=== PATIENT | male | born 1985 | race Caucasian/White ===

== ENCOUNTER 2024-04-14 18:36 | Inpatient (IN) | payer BC, SELFPAY ==
--- NOTE | 2024-04-14 18:42 | ED.PSYCH ---
HPI - Psych General Chief Complaint: Psychiatric Symptoms Stated Complaint: SI Time Seen by Provider: 04/14/24 19:17 Source: patient Mode of arrival: ambulatory Limitations: no limitations History of Present Illness ED Provider: Valentina Deng PA-C HPI Narrative: Patient is a 38 year old assigned male at with a history of bipolar disorder and borderline personality disorders presenting to the emergency department today with auditory hallucinations. Patient states that over the last 3-4 months he has had auditory hallucinations that seem to be worsening. Patient denies any thoughts of harming himself or others. Patient denies any dizziness, lightheadedness, abdominal pain, nausea, vomiting, fever, chills, blurry vision, double vision, loss of vision, chest pain, difficulty breathing, shortness of breath, back pain, night sweats, pain with urination, increased urinary frequency, increased urinary urgency, blood in his urine or stool, syncope or a near syncopal episode, recent trauma or falls, bowel incontinence, bladder incontinence, or any other complaints at this time. Associated psychiatric symptoms: auditory hallucinations Associated symptoms: denies other symptoms Related Data Allergies Allergy/AdvReac Type Severity Reaction Status Date / Time No Known Allergies Allergy Verified 04/14/24 18:47 Review of Systems Constitutional: Constitutional: Reports no additional constitutional complaints, Denies chills, Denies fever(s) and Denies night sweats Eyes: Eyes: Reports no additional eye complaints, Denies blurry vision, Denies change in vision, Denies diplopia, Denies eye discharge, Denies loss of vision and Denies eye pain ENT: Denies dizziness Cardiovascular: Cardiovascular: Reports no additional cardiovascular complaints, Denies chest pain, Denies lightheadedness, Denies Loss of Consciousness and Denies dyspnea Respiratory: Respiratory: Reports no additional respiratory complaints and Denies dyspnea Gastrointestinal: Gastrointestinal: Reports no additional gastrointestinal complaints, Denies abdominal pain, Denies melena, Denies hematochezia, Denies change in bowel habits and Denies change in stool character Genitourinary: Genitourinary: Reports no additional male genitourinary complaints, Denies hematuria, Denies oliguria, Denies difficulty urinating, Denies dysuria, Denies urinary frequency, Denies urinary hesitancy, Denies urinary incontinence and Denies urinary urgency Musculoskeletal: Musculoskeletal: Reports no additional musculoskeletal complaints, Denies numbness and Denies tingling Neurologic: Denies dizziness, Denies loss of vision, Denies numbness and Denies tingling Psychiatric: Psychiatric: Reports no additional psychiatric complaints, Reports auditory hallucinations, Denies homicidal ideation and Denies suicidal ideation Endocrine: Endocrine: Reports no additional endocrine complaints Hematologic/Lymphatic: Hematologic/Lymphatic: Reports no additional hematologic/lymphatic complaints Allergic/Immunologic: Allergic/Immunologic: Reports no additional allergic/immunologic complaints PMFSH Past Medical History Attestation statement: The following information was validated with the patient. Source: old records reviewed and nursing notes reviewed Social History Social History Smoked in Last 30 Days: No Use of substances other than those prescribed or required for medical reasons: No Do you have a plan to hurt others: No Plan Physical Exam Vital Signs: Vital Signs: Last Vital Signs Temp 98.8 F 04/14/24 19:09 Pulse 86 04/14/24 19:09 Resp 16 04/14/24 19:09 BP 140/87 H 04/14/24 19:09 Pulse Ox 98 04/14/24 19:09 O2 Del Method Room Air 04/14/24 19:09 BMI result Body Mass Index 21.0 Const: General: cooperative, no acute distress, alert and awake Nutritional Appearance: well nourished Orientation/consciousness: patient oriented x3 Limitations: no limitations HEENT: Head: Yes normal to inspection and Yes atraumatic Ears: hearing grossly normal bilaterally and external ears normal General nose exam: Normal external nose present, no nasal discharge noted and no epistaxis Face and sinus: Yes normal facial exam, No abrasion and No laceration Mouth: Normal oral and palatal mucosa present, no drooling and no muffled voice Eyes: General: appearance normal, both eyes and all related structures Periorbital: periorbital findings normal Eyelids: Yes eyelids normal Conjunctivae: conjunctivae normal Pupils: Equal, round and reactive pupils present EOM: EOMs intact bilaterally Neck: Neck: Yes normal visual inspection, Yes full ROM and Yes no lymphadenopathy Chest: Chest palpation & inspection: normal inspection of the chest Resp: Effort & Inspection: normal respiratory effort and able to speak in complete sentences GI: Inspection: Yes normal to inspection Neuro: General: patient oriented x3 and moves all extremities Cranial nerves: Yes Equal, round and reactive pupils present Cognition (Neuro): normal cognition Extrem: General: Yes normal to inspection, Yes full ROM and Yes capillary refill normal Psych: Appearance: grossly normal Mental Status: mental status grossly normal Affect: normal affect Attitude: cooperative Thought process: Normal thought process present Thought content: Normal thought content present Insight: Good insight present (Psych) Course Course Course Narrative: This is a rapid medical exam performed by Nash Mendoza NP: Additional HPI, ROS, PE not included below will be deferred to primary provider. Patient is a 38-year-old male with current diagnoses of Bipolar 2 and borderline personality disorder presenting to the emergency department with complaint of auditory hallucinations for the past 4 months, with increasing frequency and intensity recently. States he is seeing a psychiatrist via Zoom, and that his diagnoses might be changed but he is unsure to what. Denies command hallucinations to hurt himself or anyone else. Denies drug use. Was at a crisis center last week, they discontinued his Adderall and added Seroquel. Currently on lamictal, klonopin, seroquel. Plan: med clearance, CARE team eval Medical Decision Making Medical Decision Making [facility] Narrative: Patient is a 38 year old assigned male at with a history of bipolar disorder and borderline personality disorders presenting to the emergency department today with auditory hallucinations. Patient's physical exam was unremarkable. Patient's blood work was unremarkable. Patient's urine showed no acute process. I explained my physical exam findings as well as all test results to the patient. I answered all questions asked by the patient. Patient's disposition will be determined after CARE team evaluation. Differential Diagnosis Differential Diagnoses: The differential diagnosis associated with the presentation includes Auditory hallucinations Admission/Observation Consideration of admission/observation: Escalation of care including admission/observation considered Patient's disposition will be determined after CARE team evaluation. Lab Data [facility] Lab Attestation statement: I reviewed the patient's lab results. My interpretation of these results are in the [facility] Rationale portion of this note. 04/14/24 19:33 04/14/24 19:33 Labs: Lab Results 04/14/24 04/14/24 Range/Units 19:33 19:47 WBC 6.1 (4.8-10.8) X10*3/uL RBC 4.40 L (4.60-5.80) X10*6/uL Hgb 14.4 (14.0-18.0) g/dl Hct 41.0 L (42.0-52.0) % MCV 93.2 (80.0-98.0) fL MCH 32.7 (27.0-33.0) pg MCHC 35.1 (31.0-36.0) g/dl RDW 11.9 (11.0-16.0) % Plt Count 218 (160-400) X10*3/uL MPV 10.1 (9.4-12.4) fL Immature Gran % (Auto) 0.2 (0.0-0.4) % Neut % (Auto) 59.1 (45-73) % Lymph % (Auto) 31.9 (20-40) % [place] % (Auto) 7.5 (2-11) % Eos % (Auto) 1.0 (0-4) % Baso % (Auto) 0.3 (0-2) % Lymph # (Auto) 2.0 (1.2-4.9) X10*3/uL [place] # (Auto) 0.5 (0.1-1.2) X10*3/uL Eos # (Auto) 0.1 (0.0-0.4) X10*3/uL Baso # (Auto) 0.0 (0.0-0.2) X10*3/uL Abs Immat Gran (auto) 0.01 (0.00-0.03) X10*3/uL Absolute Neuts (auto) 3.6 (2.0-8.3) x10*3/uL Absolute Nucleated RBC 0.000 (0.0-0.012) X10*3/uL Nucleated RBC % (auto) 0.0 (0.0-0.2) /100WBC Sodium 145 (135-145) mmol/L Potassium 3.9 (3.3-5.1) mmol/L Chloride 111 H (96-108) mmol/L Carbon Dioxide 26 (22-29) mmol/L Anion Gap 12 (12-20) BUN 12 (9-16) mg/dL Creatinine 0.80 (0.5-1.4) mg/dL Estim Creat Clear Calc 129.1 Estimated GFR > 60 Random Glucose 99 (60-115) mg/dL Calcium 9.4 (8.4-10.2) mg/dL Total Bilirubin 0.8 (0.0-1.0) mg/dL AST 18 (5-37) U/L ALT 25 (0-40) U/L Alkaline Phosphatase 88 (39-117) U/L Total Protein 7.0 (6.5-8.0) g/dL Albumin 4.7 (3.5-5.0) g/dL Urine Color Yellow Urine Appearance Clear Urine pH 6.5 (5.0-9.0) Ur Specific [place] 1.020 (1.005-1.025) Urine Protein Trace (Neg-Trace) mg/dL Urine Glucose (UA) Negative (Negative) mg/dL Urine Ketones Trace (Negative) mg/dL Urine Blood Negative (Negative) Urine Nitrite Negative (Negative) Ur Leukocyte Esterase Negative (Negative) Urine Opiates Screen Not Detected (Not Detect) Ur Buprenorphine Scrn Not Detected (Not Detect) ng/mL Ur Oxycodone Screen Not Detected (Not Detect) ng/mL Urine Methadone Screen Not Detected (Not Detect) ng/mL Urine Fentanyl Screen Not Detected (Not Detect) Ur Barbiturates Screen Not Detected (Not Detect) Ur Phencyclidine Scrn Not Detected (Not Detect) Ur Amphetamines Screen Not Detected (Not Detect) U Benzodiazepines Scrn POSITIVE H (Not Detect) Urine Cocaine Screen Not Detected (Not Detect) U Marijuana (THC) Screen POSITIVE H (Not Detect) Ethyl Alcohol < 10 mg/dL Influenza Type A (PCR) NEGATIVE (Negative) Influenza Type B (PCR) NEGATIVE (Negative) RSV RNA Qual (PCR) NEGATIVE (Negative) SARS-CoV-2 RNA (RT-PCR) NEGATIVE (Negative) Discharge Plan Discharge Clinical Impression: Auditory hallucination Patient Disposition: Still a Patient Interventions: [place]-Suicide Risk Severity Scale Last Done: 04/14/24 18:47
[2024-04-14 18:43] VITALS: BP 129/89; PULSE 85; RESP 18; TEMP 37; O2SAT 100; BMI 21.0
[2024-04-14 19:09] VITALS: BP 140/87; PULSE 86; RESP 16; TEMP 37.1; O2SAT 98
[2024-04-14 19:39] LABS: MANUAL DIFF FLAG NO
[2024-04-14 19:44] LABS: Basophils Percent Auto 0.3 % (0-2); Eosinophils Absolute Auto 0.1 X10*3/uL (0.0-0.4); Hemoglobin 14.4 g/dl (14.0-18.0); Imm Gran Abs Auto 0.01 X10*3/uL (0.00-0.03); Imm Gran Pct Auto 0.2 % (0.0-0.4); Lymphocytes Percent Auto 31.9 % (20-40); Mean Corpuscular HGB Conc 35.1 g/dl (31.0-36.0); Mean Corpuscular Hemoglobin 32.7 pg (27.0-33.0); Mean Corpuscular Volume 93.2 fL (80.0-98.0); Mean Platelet Volume 10.1 fL (9.4-12.4); Monocytes Absolute Auto 0.5 X10*3/uL (0.1-1.2); Monocytes Percent Auto 7.5 % (2-11); Neutrophils Absolute Auto 3.6 x10*3/uL (2.0-8.3); Neutrophils Percent Auto 59.1 % (45-73); Platelet Count 218 X10*3/uL (160-400); Red Cell Distribution Width 11.9 % (11.0-16.0); White Blood Count 6.1 X10*3/uL (4.8-10.8)
[2024-04-14 19:54] LABS: Appearance Urine Clear; Color Urine Yellow; Glucose Urine UA Negative (Negative); Leukocyte Esterase Urine Negative (Negative); Nitrite Urine Negative (Negative); PH 6.5 (5.0-9.0); Urine Blood Negative (Negative); Urine Ketones Trace mg/dL (Negative); Urine Protein Trace mg/dL (Neg-Trace)
[2024-04-14 19:57] LABS: Alanine Aminotransferase 25 U/L (0-40); Albumin Level 4.7 g/dL (3.5-5.0); Alkaline Phosphatase 88 U/L (39-117); Anion Gap 12 (12-20); Aspartate Amino Transferase 18 U/L (5-37); Bilirubin Total 0.8 mg/dL (0.0-1.0); Blood Urea Nitrogen 12 mg/dL (9-16); Calcium 9.4 mg/dL (8.4-10.2); Carbon Dioxide 26 mmol/L (22-29); Chloride 111 mmol/L (96-108); Creatinine Clr Calc Pharmacy 129.1; Estimated Glomerular Filt Rate > 60; Ethanol < 10 mg/dL; Glucose Random 99 mg/dL (60-115); Potassium 3.9 mmol/L (3.3-5.1); Sodium 145 mmol/L (135-145)
[2024-04-14 20:04] LABS: Amphetamine Screen Urine Not Detected (Not Detect); Barbiturates, Urine Not Detected (Not Detect); Benzodiazepines Screen Urine POSITIVE (Not Detect); Buprenorphine Scr Not Detected (Not Detect); Cannabinoid Screen Urine POSITIVE (Not Detect); Cocaine Screen Urine Not Detected (Not Detect); Fentanyl, urine Not Detected (Not Detect); Methadone Screen, Urine Not Detected (Not Detect); Opiate Screen Urine Not Detected (Not Detect); Oxycodone Screen Urine Not Detected (Not Detect); Phencyclidine Screen Urine Not Detected (Not Detect)
[2024-04-14 20:15] LABS: Influenza A PCR NEGATIVE (Negative); Influenza B PCR NEGATIVE (Negative); Resp Syncy Virus RNA Qual PCR NEGATIVE (Negative); SARS COV2 PCR INHOUSE NEGATIVE (Negative)
--- NOTE | 2024-04-14 20:52 | PC.NURSE ---
Addendum entered by Gretchen Cottrell 04/14/24 21:58: When asked again about home medications pt stated yes I do take medications, what I said earlier is that I do not take over the counter medications . Med Rec completed accordingly. Pt confirmed prescribed meds Original Note: pt reports that they do not take any home medications
[2024-04-14] MEDS: clonazePAM 1 MG TABLET PO (22:34)
[2024-04-14] MEDS: QUEtiapine Fumarate 100 MG TABLET PO (22:34)
--- NOTE | 2024-04-14 23:22 | PC.NURSE ---
patient awaiting transfer to inpt unit.
[2024-04-15 01:03] VITALS: BP 122/80; PULSE 71; RESP 18; TEMP 36.2; O2SAT 100; BMI 20.4
[2024-04-15] MEDS: traZODone HCL 50 MG TABLET PO (01:11)
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
--- NOTE | 2024-04-15 09:16 | HO.PSYADMNOT ---
[facility] Date of Service: 04/15/24 Chief Complaint: Psychosis Sources of Information: patient interviewed, chart reviewed and crisis/core team assessment reviewed HPI Subjective Notes: [place] Warning and Conditional Voluntary Narrative: Patient is a 38-year-old male with history of bipolar disorder, PTSD and ADHD who self presented to ER due to worsening auditory hallucinations for the past 3-4 months. Per crisis report, patient reports he went to the [facility] last week and they took him off Adderall which helped his anxiety but his hallucinations continued. He reports hallucinations becoming more frequent and voices are threatening. 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 Patient stated, I'm stressed beyond belief right now and these hallucinations started because of all the stress. My family is worried . Patient reports he is struggling to manage a level of stress he is under. denies any command hallucinations. He reports poor sleep. denies SI/HI/VH. denies any history of hallucinations prior to February 2024. Denies any history of inpatient level of care or PHP. Denies history of SI/SIB. He does report outpatient therapy weekly. Denies history of substance use; occasionally smokes marijuana. Utox positive for marijuana. During admission assessment, patient presents alert and oriented x3. Calm and cooperative. Patient reports feeling anxious ; patient reports auditory hallucinations starting in December 2023 while he was at a [employer] convention. He reports voices telling him that everyone knows that he is being accused of being a rapist and a child molester . Patient states since then voices have been consistent but are starting to become more and more frequent. He reports when he is at his father's house they get louder which resulted in patient telling his father, he plans on not returning after discharge. denies SI/HI/VH. denies any history of psychosis. Denies any substance use other than occasionally smoking marijuana. He reports being medication compliant. Discussed medications; we will start Risperdal 1 mg PO BID; risks/benefits reviewed. Patient agreed to trial. Past Psychiatric History: [facility] Lorenzo Sloan SA/SIB 1st inpatient psychiatric admission. Patient reports he has been taking Lamictal and Seroquel for the past 8-10 years. Medical Evaluation Reviewed: Yes PMFSH Family History: Grandmother: Schizophrenia Social History: Lives with dad. Single. No kids. Bachelor's degree. Works as mac artist. Substance History: Marijuana. Denies any other substance use. Trauma History: Yes Diagnostics Vital Signs (24Hr): Vital Signs - 24 hr 04/14/24 18:43 04/14/24 19:09 04/15/24 01:03 Temperature 98.6 F 98.8 F 97.2 F Pulse Rate 85 86 71 Respiratory Rate 18 16 18 Blood Pressure 129/89 140/87 H 122/80 Pulse Oximetry 100 98 100 Oxygen Delivery Method Room Air Room Air Room Air BMI result Body Mass Index 20.4 Labs 04/14/24 19:33 04/14/24 19:33 Labs: Laboratory Results - last 48 hr 04/14/24 04/14/24 19:33 19:47 WBC 6.1 RBC 4.40 L Hgb 14.4 Hct 41.0 L MCV 93.2 MCH 32.7 MCHC 35.1 RDW 11.9 Plt Count 218 MPV 10.1 Immature Gran % (Auto) 0.2 Neut % (Auto) 59.1 Lymph % (Auto) 31.9 [place] % (Auto) 7.5 Eos % (Auto) 1.0 Baso % (Auto) 0.3 Lymph # (Auto) 2.0 [place] # (Auto) 0.5 Eos # (Auto) 0.1 Baso # (Auto) 0.0 Abs Immat Gran (auto) 0.01 Absolute Neuts (auto) 3.6 Absolute Nucleated RBC 0.000 Nucleated RBC % (auto) 0.0 Sodium 145 Potassium 3.9 Chloride 111 H Carbon Dioxide 26 Anion Gap 12 BUN 12 Creatinine 0.80 Estim Creat Clear Calc 129.1 Estimated GFR > 60 Random Glucose 99 Calcium 9.4 Total Bilirubin 0.8 AST 18 ALT 25 Alkaline Phosphatase 88 Total Protein 7.0 Albumin 4.7 Urine Color Yellow Urine Appearance Clear Urine pH 6.5 Ur Specific [place] 1.020 Urine Protein Trace Urine Glucose (UA) Negative Urine Ketones Trace Urine Blood Negative Urine Nitrite Negative Ur Leukocyte Esterase Negative Urine Opiates Screen Not Detected Ur Buprenorphine Scrn Not Detected Ur Oxycodone Screen Not Detected Urine Methadone Screen Not Detected Urine Fentanyl Screen Not Detected Ur Barbiturates Screen Not Detected Ur Phencyclidine Scrn Not Detected Ur Amphetamines Screen Not Detected U Benzodiazepines Scrn POSITIVE H Urine Cocaine Screen Not Detected U Marijuana (THC) Screen POSITIVE H Ethyl Alcohol < 10 Influenza Type A (PCR) NEGATIVE Influenza Type B (PCR) NEGATIVE RSV RNA Qual (PCR) NEGATIVE SARS-CoV-2 RNA (RT-PCR) NEGATIVE Meds/Allergies Meds Home Medications ?Medication ?Instructions ?Recorded ?Confirmed ?Type clonazepam 1 mg tablet 1 mg PO QID PRN Anxiety 04/14/24 04/14/24 History lamotrigine 200 mg tablet 200 mg PO BID 04/14/24 04/14/24 History quetiapine 100 mg tablet 100 mg PO BEDTIME 04/14/24 04/14/24 History quetiapine 25 mg tablet 25 mg PO BID 04/14/24 04/14/24 History Allergies Allergies Allergy/AdvReac Type Severity Reaction Status Date / Time No Known Allergies Allergy Verified 04/14/24 18:47 Mental Status Exam Mental Status Exam Narrative: Pt is alert and oriented; behavior is cooperative and calm; dressed in casual attire; mood is described as anxious ; eye contact appropriate; Speech is normal rate, volume and not pressured; thought process is organized and goal directed; Thought content is on tx; otherwise pertinent to relevant topics and without any delusional content, paranoid ideations or grandiosity; denies SI/HI/VH. Patient reports auditory hallucinations. Assessment & Plan Assessment & Plan (1) Bipolar 2 disorder: Status: Acute Code(s): F31.81 - Bipolar II disorder (2) PTSD (post-traumatic stress disorder): Status: Acute Code(s): F43.10 - Post-traumatic stress disorder, unspecified (3) ADHD: Status: Acute Code(s): F90.9 - Attention-deficit hyperactivity disorder, unspecified type Plan Patient is a 38-year-old male with history of bipolar disorder, PTSD and ADHD who self presented to ER due to worsening auditory hallucinations for the past 3-4 months. Plan: CV 15 minute safety checks Obtain collateral Continue home medications Start: Risperdal 1mg PO BID Encourage groups Discharge planning Patient educated on: diagnosis and medication risk/benefits Reason for continued inpatient stay Substantial Risk for: med/psych decompensation Statement Statement: I have reviewed the history and physical and performed a pertinent examination on my patient. No changes have occurred unless specified. If the History and Physical was not performed prior to admission, the Hospitalist's service will be consulted for completing the admission physical. Time Spent With Patient Time: Total time managing care of this patient today _60___ minutes.
--- NOTE | 2024-04-15 09:24 | MHC.CLN ---
NUTRITION PATIENT FOLLOWS VEGAN DIET. DINING SERVICES AWARE.
[2024-04-15] MEDS: lamoTRIgine 100 MG TABLET 200 MG PO ×2 (10:20→16:09)
[2024-04-15] MEDS: QUEtiapine Fumarate 25 MG TABLET PO (10:20)
[2024-04-15] MEDS: clonazePAM 1 MG TABLET PO ×2 (10:24→18:02)
[2024-04-15] MEDS: risperiDONE 1 MG TABLET PO ×2 (11:44→21:22)
[2024-04-15] MEDS: Nicotine Polacrilex 2 MG GUM 4 MG BUCCAL (12:16)
[2024-04-15 13:01] LABS: Estimated Average Glucose 100 mg/dL; Hemoglobin A1C 127.5963 umol/L; Hemoglobin A1c % 5.1 % (<6.0); Total Hemoglobin (HGBA1C) 3939.4983 umol/L
[2024-04-15 13:07] LABS: Cholesterol 153 mg/dL (<200); HDL Cholesterol 66 mg/dL (>40); LDL Cholesterol Calculated 82 mg/dL (<100); Triglycerides 26 mg/dL (<150)
[2024-04-15 13:23] LABS: Free T4 (Free Thyroxine) 1.06 ng/dL (0.71-1.85); Thyroid Stimulating Hormone 0.54 uIU/mL (0.32-4.0)
[2024-04-15 13:36] LABS: Folate 9.8 ng/mL (> or = 4.0); Vitamin B12 720 pg/mL (200-900)
[2024-04-15] MEDS: Nicotine 21 MG PATCH.TD24 TRANSDERMA (14:40)
[2024-04-15 20:00] VITALS: BP 117/82; PULSE 87; RESP 16; TEMP 36.8; O2SAT 100
[2024-04-15] MEDS: QUEtiapine Fumarate 100 MG TABLET PO (21:22)
[2024-04-16 07:33] VITALS: BP 100/63; PULSE 99; RESP 16; TEMP 37.2; O2SAT 97
[2024-04-16] MEDS: Nicotine 21 MG PATCH.TD24 TRANSDERMA (09:32)
[2024-04-16] MEDS: clonazePAM 1 MG TABLET PO ×3 (09:34→19:20)
[2024-04-16] MEDS: risperiDONE 1 MG TABLET PO ×2 (09:34→22:29)
[2024-04-16] MEDS: lamoTRIgine 100 MG TABLET 200 MG PO ×2 (09:34→14:17)
--- NOTE | 2024-04-16 16:15 | P.PNPSI_ITS ---
Subjective Subjective Date of Service: 04/16/24 Reason For Visit: Psychosis Subjective Notes: Conditional Voluntary Interim History: Pt reports sleeping through the night. He reports he feels so much better, that he is hearing less voices. He reports risperidone helping, still hearing voices but has awareness that others can't hear them. He reports he was taking clonzapam which helped with fine tremors. He reports tremors did get worse with adderall. He has been on adderall for 4 years. he just recently stopped it. We discussed keeping dose of clonazepam at max of 1mg po BID prn, which is what he is taking, but recommend pt to use for anxiety. We discussed fine tremors as result of stimulants (same as essentia tremors) standard of care is usually beta mg like propanolol. He has been visible on the unit. social. no behavioral concerns. Review of Systems Constitutional: Reports as per HPI, Reports no additional constitutional complaints, Denies chills, Denies fever(s) and Denies night sweats Eyes: Reports as per HPI, Reports no additional eye complaints, Denies blurry vision, Denies change in vision, Denies diplopia, Denies eye discharge, Denies loss of vision and Denies eye pain Reports as per HPI and Denies dizziness Cardiovascular: Reports as per HPI, Reports no additional cardiovascular complaints, Denies chest pain, Denies lightheadedness, Denies Loss of Consciousness and Denies dyspnea Respiratory: Reports as per HPI, Reports no additional respiratory complaints and Denies dyspnea Gastrointestinal: Reports as per HPI, Reports no additional gastrointestinal complaints, Denies abdominal pain, Denies melena, Denies hematochezia, Denies change in bowel habits and Denies change in stool character Genitourinary: Reports no additional male genitourinary complaints, Reports as per HPI, Denies hematuria, Denies oliguria, Denies difficulty urinating, Denies dysuria, Denies urinary frequency, Denies urinary hesitancy, Denies urinary incontinence and Denies urinary urgency Musculoskeletal: Reports no additional musculoskeletal complaints, Reports as per HPI, Denies numbness and Denies tingling Skin/Breast: Reports as per HPI Reports as per HPI, Denies dizziness, Denies loss of vision, Denies numbness and Denies tingling Psychiatric: Reports no additional psychiatric complaints, Reports as per HPI, Reports auditory hallucinations, Denies homicidal ideation and Denies suicidal ideation Endocrine: Reports no additional endocrine complaints and Reports as per HPI Hematologic/Lymphatic: Reports no additional hematologic/lymphatic complaints and Reports as per HPI Allergic/Immunologic: Reports no additional allergic/immunologic complaints and Reports as per HPI Mental Status Exam Mental Status Exam Narrative: Pt is alert and oriented; behavior is cooperative and calm; dressed in casual attire; mood is described as anxious ; eye contact appropriate; Speech is normal rate, volume and not pressured; thought process is organized and goal directed; Thought content is on tx; otherwise pertinent to relevant topics and without any delusional content, paranoid ideations or grandiosity; denies SI/HI/VH. Patient reports auditory hallucinations. Diagnostics Vital Signs (24Hr): Vital Signs - 24 hr 04/15/24 20:00 04/16/24 07:33 Temperature 98.3 F 98.9 F Pulse Rate 87 99 Respiratory Rate 16 16 Blood Pressure 117/82 100/63 Pulse Oximetry 100 97 Oxygen Delivery Method Room Air Room Air BMI result Body Mass Index 20.4 Labs 04/14/24 19:33 04/14/24 19:33 Labs: Laboratory Results - last 48 hr 04/14/24 04/14/24 04/15/24 19:33 19:47 11:33 WBC 6.1 RBC 4.40 L Hgb 14.4 Hct 41.0 L MCV 93.2 MCH 32.7 MCHC 35.1 RDW 11.9 Plt Count 218 MPV 10.1 Immature Gran % (Auto) 0.2 Neut % (Auto) 59.1 Lymph % (Auto) 31.9 [place] % (Auto) 7.5 Eos % (Auto) 1.0 Baso % (Auto) 0.3 Lymph # (Auto) 2.0 [place] # (Auto) 0.5 Eos # (Auto) 0.1 Baso # (Auto) 0.0 Abs Immat Gran (auto) 0.01 Absolute Neuts (auto) 3.6 Absolute Nucleated RBC 0.000 Nucleated RBC % (auto) 0.0 Sodium 145 Potassium 3.9 Chloride 111 H Carbon Dioxide 26 Anion Gap 12 BUN 12 Creatinine 0.80 Estim Creat Clear Calc 129.1 Estimated GFR > 60 Random Glucose 99 Estimat Average Glucose 100 Hemoglobin A1c % 5.1 Calcium 9.4 Total Bilirubin 0.8 AST 18 ALT 25 Alkaline Phosphatase 88 Total Protein 7.0 Albumin 4.7 Triglycerides 26 Cholesterol 153 LDL Cholesterol, Calc 82 HDL Cholesterol 66 Vitamin B12 720 Folate 9.8 TSH 0.54 Free T4 1.06 Urine Color Yellow Urine Appearance Clear Urine pH 6.5 Ur Specific Kite 1.020 Urine Protein Trace Urine Glucose (UA) Negative Urine Ketones Trace Urine Blood Negative Urine Nitrite Negative Ur Leukocyte Esterase Negative Urine Opiates Screen Not Detected Ur Buprenorphine Scrn Not Detected Ur Oxycodone Screen Not Detected Urine Methadone Screen Not Detected Urine Fentanyl Screen Not Detected Ur Barbiturates Screen Not Detected Ur Phencyclidine Scrn Not Detected Ur Amphetamines Screen Not Detected U Benzodiazepines Scrn POSITIVE H Urine Cocaine Screen Not Detected U Marijuana (THC) Screen POSITIVE H Ethyl Alcohol < 10 Influenza Type A (PCR) NEGATIVE Influenza Type B (PCR) NEGATIVE RSV RNA Qual (PCR) NEGATIVE SARS-CoV-2 RNA (RT-PCR) NEGATIVE Medications Medications Current Medications Acetaminophen (Acetaminophen 325 Mg Tablet) 650 mg PO Q6H PRN PRN Reason: Headache/Pain Mild Scale (1-3) Al Hydroxide/Mg Hydroxide (Magnesium Hydrox/Alum Hydrox 30 Ml Oral.Susp) 30 ml PO Q6H PRN PRN Reason: Heartburn/Nausea Clonazepam (Clonazepam 1 Mg Tablet) 1 mg PO QID PRN PRN Reason: Anxiety Last Admin: 04/16/24 14:17 Dose: 1 mg Hydroxyzine HCl (Hydroxyzine Hcl 25 Mg Tablet) 25 mg PO Q6H PRN PRN Reason: Anxiety Lamotrigine (Lamotrigine 100 Mg Tablet) 200 mg PO BID@0800,1400 [facility] Last Admin: 04/16/24 14:17 Dose: 200 mg Magnesium Hydroxide (Milk Of Magnesia 30 Ml Oral.Susp) 30 ml PO DAILY PRN PRN Reason: Constipation Nicotine (Nicotine 21 Mg Patch.Td24) 21 mg TRANSDERMA DAILY [facility] Last Admin: 04/16/24 09:32 Dose: 21 mg Nicotine Polacrilex (Nicotine Polacrilex 2 Mg Gum) 4 mg BUCCAL Q2H PRN PRN Reason: Nicotine Cravings Last Admin: 04/15/24 12:16 Dose: 4 mg Quetiapine Fumarate (Quetiapine Fumarate 100 Mg Tablet) 100 mg PO BEDTIME [facility] Last Admin: 04/15/24 21:22 Dose: 100 mg Risperidone (Risperidone 1 Mg Tablet) 1 mg PO BID [facility] Last Admin: 04/16/24 09:34 Dose: 1 mg Trazodone HCl (Trazodone Hcl 50 Mg Tablet) 50 mg PO BEDTIME MRX1 PRN PRN Reason: Insomnia Last Admin: 04/15/24 01:11 Dose: 50 mg Allergies Allergies Allergy/AdvReac Type Severity Reaction Status Date / Time No Known Allergies Allergy Verified 04/14/24 18:47 Assessment & Plan Assessment & Plan (1) Bipolar 2 disorder: Status: Acute Code(s): F31.81 - Bipolar II disorder (2) PTSD (post-traumatic stress disorder): Status: Acute Code(s): F43.10 - Post-traumatic stress disorder, unspecified (3) ADHD: Status: Acute Code(s): F90.9 - Attention-deficit hyperactivity disorder, unspecified type Plan Patient is a 38-year-old male with history of bipolar disorder, PTSD and ADHD who self presented to ER due to worsening auditory hallucinations for the past 3-4 months. Plan: 04/16 psychosis, better. unclear etiology if secondary to stimulant use and cannabinoids. continue tx. lower prn dose of clonazepam to 1mg po BID prm which is what he was taking. 4mg of clonazepam a day is very high dose Reason for continued inpatient stay Substantial Risk for: inability to function Time Spent With Patient Time: Total time managing care of this patient today ____ minutes.
[2024-04-16] MEDS: Acetaminophen 325 MG TABLET 650 MG PO (17:02)
[2024-04-16] MEDS: Lidocaine 4 % Patch ADH..PATCH 1 PATCH TRANSDERMA (17:13)
[2024-04-16] MEDS: Ibuprofen 600 MG TABLET PO (18:29)
--- NOTE | 2024-04-16 19:26 | PC.NURSE ---
Pt c/o 10 pain in mid left back, along spine. He believes that he pulled a muscle from laughing . Dr Kim contacted via [facility] because after tylenol, advil, and ice, the pain only increased. VSS, 100%o2 sat. Dr. Kim stated to continue with comfort measures. Klonopin 1mg just provided.
[2024-04-16 20:00] VITALS: BP 137/89; PULSE 91; RESP 16; TEMP 36.9; O2SAT 100
[2024-04-16] MEDS: QUEtiapine Fumarate 100 MG TABLET PO (22:29)
[2024-04-16] MEDS: traZODone HCL 50 MG TABLET PO (22:29)
[2024-04-17 08:00] VITALS: BP 119/60; PULSE 95; RESP 15; TEMP 36.9; O2SAT 97
[2024-04-17] MEDS: Nicotine 21 MG PATCH.TD24 TRANSDERMA ×2 (09:05→13:43)
[2024-04-17] MEDS: risperiDONE 1 MG TABLET PO (09:07)
[2024-04-17] MEDS: clonazePAM 1 MG TABLET PO ×2 (09:07→14:49)
[2024-04-17] MEDS: lamoTRIgine 100 MG TABLET 200 MG PO ×2 (09:07→13:43)
--- NOTE | 2024-04-17 11:10 | P.PNPSI_ITS ---
Subjective Subjective Date of Service: 04/17/24 Reason For Visit: Psychosis Interim History: Pt reports sleeping through the night. He reports he feels so much better, that he is hearing less voices. He reports risperidone helping, still hearing voices but has awareness that others can't hear them. He reports he was taking clonzapam which helped with fine tremors. He reports tremors did get worse with adderall. He has been on adderall for 4 years. he just recently stopped it. We discussed keeping dose of clonazepam at max of 1mg po BID prn, which is what he is taking, but recommend pt to use for anxiety. We discussed fine tremors as result of stimulants (same as essentia tremors) standard of care is usually beta mg like propanolol. He has been visible on the unit. social. no behavioral concerns. Review of Systems Constitutional: Reports as per HPI, Reports no additional constitutional complaints, Denies chills, Denies fever(s) and Denies night sweats Eyes: Reports as per HPI, Reports no additional eye complaints, Denies blurry vision, Denies change in vision, Denies diplopia, Denies eye discharge, Denies loss of vision and Denies eye pain Reports as per HPI and Denies dizziness Cardiovascular: Reports as per HPI, Reports no additional cardiovascular complaints, Denies chest pain, Denies lightheadedness, Denies Loss of Consciousness and Denies dyspnea Respiratory: Reports as per HPI, Reports no additional respiratory complaints and Denies dyspnea Gastrointestinal: Reports as per HPI, Reports no additional gastrointestinal complaints, Denies abdominal pain, Denies melena, Denies hematochezia, Denies change in bowel habits and Denies change in stool character Genitourinary: Reports no additional male genitourinary complaints, Reports as per HPI, Denies hematuria, Denies oliguria, Denies difficulty urinating, Denies dysuria, Denies urinary frequency, Denies urinary hesitancy, Denies urinary incontinence and Denies urinary urgency Musculoskeletal: Reports no additional musculoskeletal complaints, Reports as per HPI, Denies numbness and Denies tingling Skin/Breast: Reports as per HPI Reports as per HPI, Denies dizziness, Denies loss of vision, Denies numbness and Denies tingling Psychiatric: Reports no additional psychiatric complaints, Reports as per HPI, Reports auditory hallucinations, Denies homicidal ideation and Denies suicidal ideation Endocrine: Reports no additional endocrine complaints and Reports as per HPI Hematologic/Lymphatic: Reports no additional hematologic/lymphatic complaints and Reports as per HPI Allergic/Immunologic: Reports no additional allergic/immunologic complaints and Reports as per HPI Mental Status Exam Mental Status Exam Narrative: Pt is alert and oriented; behavior is cooperative and calm; dressed in casual attire; mood is described as anxious ; eye contact appropriate; Speech is normal rate, volume and not pressured; thought process is organized and goal directed; Thought content is on tx; otherwise pertinent to relevant topics and without any delusional content, paranoid ideations or grandiosity; denies SI/HI/VH. Patient reports auditory hallucinations. Diagnostics Vital Signs (24Hr): Vital Signs - 24 hr 04/16/24 20:00 Temperature 98.5 F Pulse Rate 91 Respiratory Rate 16 Blood Pressure 137/89 Pulse Oximetry 100 Oxygen Delivery Method Room Air BMI result Body Mass Index 20.4 Labs 04/14/24 19:33 04/14/24 19:33 Labs: Laboratory Results - last 48 hr 04/15/24 11:33 Estimat Average Glucose 100 Hemoglobin A1c % 5.1 Triglycerides 26 Cholesterol 153 LDL Cholesterol, Calc 82 HDL Cholesterol 66 Vitamin B12 720 Folate 9.8 TSH 0.54 Free T4 1.06 Medications Medications Current Medications Acetaminophen (Acetaminophen 325 Mg Tablet) 650 mg PO Q6H PRN PRN Reason: Headache/Pain Mild Scale (1-3) Last Admin: 04/16/24 17:02 Dose: 650 mg Al Hydroxide/Mg Hydroxide (Magnesium Hydrox/Alum Hydrox 30 Ml Oral.Susp) 30 ml PO Q6H PRN PRN Reason: Heartburn/Nausea Clonazepam (Clonazepam 1 Mg Tablet) 1 mg PO QID PRN PRN Reason: Anxiety Last Admin: 04/17/24 09:07 Dose: 1 mg Hydroxyzine HCl (Hydroxyzine Hcl 25 Mg Tablet) 25 mg PO Q6H PRN PRN Reason: Anxiety Ibuprofen (Ibuprofen 600 Mg Tablet) 600 mg PO Q6H PRN PRN Reason: Pain, Mild 1-3,fever,headache Last Admin: 04/16/24 18:29 Dose: 600 mg Lamotrigine (Lamotrigine 100 Mg Tablet) 200 mg PO BID@0800,1400 [facility] Last Admin: 04/17/24 09:07 Dose: 200 mg Lidocaine (Lidocaine 4 % Patch Adh..Patch) 1 patch TRANSDERMA DAILY [facility]; Protocol Last Admin: 04/17/24 11:08 Dose: Not Given Magnesium Hydroxide (Milk Of Magnesia 30 Ml Oral.Susp) 30 ml PO DAILY PRN PRN Reason: Constipation Nicotine (Nicotine 21 Mg Patch.Td24) 21 mg TRANSDERMA DAILY [facility] Last Admin: 04/17/24 09:05 Dose: 21 mg Nicotine Polacrilex (Nicotine Polacrilex 2 Mg Gum) 4 mg BUCCAL Q2H PRN PRN Reason: Nicotine Cravings Last Admin: 04/15/24 12:16 Dose: 4 mg Quetiapine Fumarate (Quetiapine Fumarate 100 Mg Tablet) 100 mg PO BEDTIME [facility] Last Admin: 04/16/24 22:29 Dose: 100 mg Risperidone (Risperidone 1 Mg Tablet) 1 mg PO BID [facility] Last Admin: 04/17/24 09:07 Dose: 1 mg Trazodone HCl (Trazodone Hcl 50 Mg Tablet) 50 mg PO BEDTIME MRX1 PRN PRN Reason: Insomnia Last Admin: 04/16/24 22:29 Dose: 50 mg Allergies Allergies Allergy/AdvReac Type Severity Reaction Status Date / Time No Known Allergies Allergy Verified 04/14/24 18:47 Assessment & Plan Assessment & Plan (1) Bipolar 2 disorder: Status: Acute Code(s): F31.81 - Bipolar II disorder (2) PTSD (post-traumatic stress disorder): Status: Acute Code(s): F43.10 - Post-traumatic stress disorder, unspecified (3) ADHD: Status: Acute Code(s): F90.9 - Attention-deficit hyperactivity disorder, unspecified type Plan Patient is a 38-year-old male with history of bipolar disorder, PTSD and ADHD who self presented to ER due to worsening auditory hallucinations for the past 3-4 months. Plan: 04/17 lower prn clonazepam to 1mg po BID PRN. Increase risperidone 1mg po daily and 2mg po qhs- although educated pt on waiting as AH are less. propanolol 20mg BID for essential tremor Reason for continued inpatient stay Substantial Risk for: inability to function Time Spent With Patient Time: Total time managing care of this patient today ____ minutes.
[2024-04-17 20:00] VITALS: BP 120/87; PULSE 92; RESP 16; TEMP 36.7; O2SAT 99
[2024-04-17] MEDS: traZODone HCL 50 MG TABLET PO (20:31)
[2024-04-17] MEDS: Propranolol HCL 20 MG TABLET PO (20:31)
[2024-04-17] MEDS: risperiDONE 2 MG TABLET PO (20:31)
[2024-04-17] MEDS: QUEtiapine Fumarate 100 MG TABLET PO (20:31)
[2024-04-18 07:35] VITALS: BP 123/62; PULSE 83; RESP 16; TEMP 36.9; O2SAT 97
[2024-04-18 08:54] VITALS: BP 123/62; PULSE 83
[2024-04-18] MEDS: Lidocaine 4 % Patch ADH..PATCH 1 PATCH TRANSDERMA (08:54)
[2024-04-18] MEDS: Propranolol HCL 20 MG TABLET PO ×2 (08:54→21:15)
[2024-04-18] MEDS: Nicotine 21 MG PATCH.TD24 TRANSDERMA ×2 (08:54→17:36)
[2024-04-18] MEDS: risperiDONE 1 MG TABLET PO (08:55)
[2024-04-18] MEDS: lamoTRIgine 100 MG TABLET 200 MG PO ×2 (08:55→15:12)
--- NOTE | 2024-04-18 09:02 | P.PNPSI_ITS ---
Subjective Subjective Date of Service: 04/18/24 Reason For Visit: Psychosis Subjective Notes: Conditional Voluntary Interim History: Active on unit, social with peers. attending groups. Patient reports feeling good today; pt stated, I have't had any voices last night or this morning so far. I wish I didn't wait so long til I got help . He reports sleeping well last night. denies SI/HI/VH/AH. Plan to discharge home this week if he continues to improve;pt aware. Medication Compliance: Yes Side effects from medications: No Attending Groups: Yes Review of Systems Constitutional: Reports as per HPI Eyes: Reports as per HPI Reports as per HPI Cardiovascular: Reports as per HPI Respiratory: Reports as per HPI Gastrointestinal: Reports as per HPI Genitourinary: Reports as per HPI Musculoskeletal: Reports as per HPI Skin/Breast: Reports as per HPI Reports as per HPI Psychiatric: Reports as per HPI Endocrine: Reports as per HPI Hematologic/Lymphatic: Reports as per HPI Allergic/Immunologic: Reports as per HPI Mental Status Exam Mental Status Exam Narrative: Pt is alert and oriented; behavior is cooperative; dressed in casual attire; mood is described as anxious ; eye contact appropriate; Speech is normal rate, volume and not pressured; thought process is organized and goal directed; Thought content is on tx; denies SI/HI/VH/AH. Diagnostics Vital Signs (24Hr): Vital Signs - 24 hr 04/17/24 20:00 04/18/24 07:35 04/18/24 08:54 Temperature 98.1 F 98.5 F Pulse Rate 92 83 83 Respiratory Rate 16 16 Blood Pressure 120/87 123/62 123/62 Pulse Oximetry 99 97 Oxygen Delivery Method Room Air Room Air BMI result Body Mass Index 20.4 Labs 04/14/24 19:33 04/14/24 19:33 Medications Medications Current Medications Acetaminophen (Acetaminophen 325 Mg Tablet) 650 mg PO Q6H PRN PRN Reason: Headache/Pain Mild Scale (1-3) Last Admin: 04/16/24 17:02 Dose: 650 mg Al Hydroxide/Mg Hydroxide (Magnesium Hydrox/Alum Hydrox 30 Ml Oral.Susp) 30 ml PO Q6H PRN PRN Reason: Heartburn/Nausea Clonazepam (Clonazepam 1 Mg Tablet) 1 mg PO BID PRN PRN Reason: Anxiety Last Admin: 04/17/24 14:49 Dose: 1 mg Hydroxyzine HCl (Hydroxyzine Hcl 25 Mg Tablet) 25 mg PO Q6H PRN PRN Reason: Anxiety Ibuprofen (Ibuprofen 600 Mg Tablet) 600 mg PO Q6H PRN PRN Reason: Pain, Mild 1-3,fever,headache Last Admin: 04/16/24 18:29 Dose: 600 mg Lamotrigine (Lamotrigine 100 Mg Tablet) 200 mg PO BID@0800,1400 [facility] Last Admin: 04/18/24 08:55 Dose: 200 mg Lidocaine (Lidocaine 4 % Patch Adh..Patch) 1 patch TRANSDERMA DAILY [facility]; Protocol Last Admin: 04/18/24 08:54 Dose: 1 patch Magnesium Hydroxide (Milk Of Magnesia 30 Ml Oral.Susp) 30 ml PO DAILY PRN PRN Reason: Constipation Nicotine (Nicotine 21 Mg Patch.Td24) 21 mg TRANSDERMA DAILY [facility] Last Admin: 04/18/24 08:54 Dose: 21 mg Nicotine Polacrilex (Nicotine Polacrilex 2 Mg Gum) 4 mg BUCCAL Q2H PRN PRN Reason: Nicotine Cravings Last Admin: 04/15/24 12:16 Dose: 4 mg Propranolol HCl (Propranolol Hcl 20 Mg Tablet) 20 mg PO BID [facility]; Protocol Last Admin: 04/18/24 08:54 Dose: 20 mg Quetiapine Fumarate (Quetiapine Fumarate 100 Mg Tablet) 100 mg PO BEDTIME [facility] Last Admin: 04/17/24 20:31 Dose: 100 mg Risperidone (Risperidone 1 Mg Tablet) 1 mg PO DAILY [facility] Last Admin: 04/18/24 08:55 Dose: 1 mg Risperidone (Risperidone 2 Mg Tablet) 2 mg PO BEDTIME [facility] Last Admin: 04/17/24 20:31 Dose: 2 mg Trazodone HCl (Trazodone Hcl 50 Mg Tablet) 50 mg PO BEDTIME MRX1 PRN PRN Reason: Insomnia Last Admin: 04/17/24 20:31 Dose: 50 mg Allergies Allergies Allergy/AdvReac Type Severity Reaction Status Date / Time No Known Allergies Allergy Verified 04/14/24 18:47 Assessment & Plan Assessment & Plan (1) Bipolar 2 disorder: Status: Acute Code(s): F31.81 - Bipolar II disorder (2) PTSD (post-traumatic stress disorder): Status: Acute Code(s): F43.10 - Post-traumatic stress disorder, unspecified (3) ADHD: Status: Acute Code(s): F90.9 - Attention-deficit hyperactivity disorder, unspecified type Plan Patient is a 38-year-old male with history of bipolar disorder, PTSD and ADHD who self presented to ER due to worsening auditory hallucinations for the past 3-4 months. Plan: 04/17 lower prn clonazepam to 1mg po BID PRN. Increase risperidone 1mg po daily and 2mg po qhs- although educated pt on waiting as AH are less. propanolol 20mg BID for essential tremor 04/18: Active on unit, social with peers. attending groups. Patient reports feeling good today; pt stated, I have't had any voices last night or this morning so far. I wish I didn't wait so long til I got help . He reports sleeping well last night. denies SI/HI/VH/AH. Plan to discharge home this week if he continues to improve;pt aware. Patient educated on: diagnosis, medication risk/benefits and therapeutic strategies Reason for continued inpatient stay Substantial Risk for: med/psych decompensation Time Spent With Patient Time: Total time managing care of this patient today _20___ minutes.
[2024-04-18] MEDS: clonazePAM 1 MG TABLET PO ×2 (12:50→18:21)
[2024-04-18 20:29] VITALS: BP 122/82; PULSE 109; RESP 18; TEMP 36.9; O2SAT 100
[2024-04-18] MEDS: risperiDONE 2 MG TABLET PO (21:15)
[2024-04-18] MEDS: QUEtiapine Fumarate 100 MG TABLET PO (21:15)
[2024-04-18] MEDS: traZODone HCL 50 MG TABLET PO (21:16)
[2024-04-19 08:50] VITALS: BP 126/71; PULSE 94; RESP 18; TEMP 36.6; O2SAT 100
[2024-04-19] MEDS: lamoTRIgine 100 MG TABLET 200 MG PO ×2 (08:54→14:09)
[2024-04-19] MEDS: risperiDONE 1 MG TABLET PO (08:54)
[2024-04-19] MEDS: clonazePAM 1 MG TABLET PO ×2 (08:54→17:06)
[2024-04-19 08:55] VITALS: BP 126/71; PULSE 95
[2024-04-19] MEDS: Propranolol HCL 20 MG TABLET PO ×2 (08:55→20:32)
[2024-04-19] MEDS: Nicotine 21 MG PATCH.TD24 TRANSDERMA (08:55)
[2024-04-19] MEDS: Ibuprofen 600 MG TABLET PO (08:55)
[2024-04-19] MEDS: Acetaminophen 325 MG TABLET 650 MG PO (08:55)
--- NOTE | 2024-04-19 09:39 | HO.PSYCHPN ---
Subjective Subjective Date of Service: 04/19/24 Reason For Visit: Psychosis Subjective Notes: Conditional Voluntary Interim History: Patient reports feeling great today; pt stated, I feel much better. I'm so glad I came to get help. I feel like I'm starting to feel like myself again . denies SI/HI/VH/AH. He reports sleeping well. Pt reports he plans on taking hydroxyzine today to see if it decreases his anxiety, rather than taking klonopin. Continue current tx plan. Medication Compliance: Yes Side effects from medications: No Attending Groups: Yes Review of Systems Constitutional: Reports as per HPI Eyes: Reports as per HPI Reports as per HPI Cardiovascular: Reports as per HPI Respiratory: Reports as per HPI Gastrointestinal: Reports as per HPI Genitourinary: Reports as per HPI Musculoskeletal: Reports as per HPI Skin/Breast: Reports as per HPI Reports as per HPI Psychiatric: Reports as per HPI Endocrine: Reports as per HPI Hematologic/Lymphatic: Reports as per HPI Allergic/Immunologic: Reports as per HPI Mental Status Exam Mental Status Exam Narrative: Pt is alert and oriented; behavior is cooperative; dressed in casual attire; mood is described as good ; eye contact appropriate; Speech is normal rate, volume and not pressured; thought process is organized and goal directed; Thought content is on tx; denies SI/HI/VH/AH. Diagnostics Vital Signs (24Hr): Vital Signs - 24 hr 04/18/24 20:29 04/19/24 08:50 04/19/24 08:55 Temperature 98.5 F 97.8 F Pulse Rate 109 H 94 95 Respiratory Rate 18 18 Blood Pressure 122/82 126/71 126/71 Pulse Oximetry 100 100 Oxygen Delivery Method Room Air Room Air BMI result Body Mass Index 20.4 Labs 04/14/24 19:33 04/14/24 19:33 Medications Medications Current Medications Acetaminophen (Acetaminophen 325 Mg Tablet) 650 mg PO Q6H PRN PRN Reason: Headache/Pain Mild Scale (1-3) Last Admin: 04/19/24 08:55 Dose: 650 mg Al Hydroxide/Mg Hydroxide (Magnesium Hydrox/Alum Hydrox 30 Ml Oral.Susp) 30 ml PO Q6H PRN PRN Reason: Heartburn/Nausea Clonazepam (Clonazepam 1 Mg Tablet) 1 mg PO BID PRN PRN Reason: Anxiety Last Admin: 04/19/24 08:54 Dose: 1 mg Hydroxyzine HCl (Hydroxyzine Hcl 25 Mg Tablet) 25 mg PO Q6H PRN PRN Reason: Anxiety Ibuprofen (Ibuprofen 600 Mg Tablet) 600 mg PO Q6H PRN PRN Reason: Pain, Mild 1-3,fever,headache Last Admin: 04/19/24 08:55 Dose: 600 mg Lamotrigine (Lamotrigine 100 Mg Tablet) 200 mg PO BID@0800,1400 [facility] Last Admin: 04/19/24 08:54 Dose: 200 mg Lidocaine (Lidocaine 4 % Patch Adh..Patch) 1 patch TRANSDERMA DAILY [facility]; Protocol Last Admin: 04/19/24 08:52 Dose: Not Given Magnesium Hydroxide (Milk Of Magnesia 30 Ml Oral.Susp) 30 ml PO DAILY PRN PRN Reason: Constipation Nicotine (Nicotine 21 Mg Patch.Td24) 21 mg TRANSDERMA DAILY [facility] Last Admin: 04/19/24 08:55 Dose: 21 mg Nicotine Polacrilex (Nicotine Polacrilex 2 Mg Gum) 4 mg BUCCAL Q2H PRN PRN Reason: Nicotine Cravings Last Admin: 04/15/24 12:16 Dose: 4 mg Propranolol HCl (Propranolol Hcl 20 Mg Tablet) 20 mg PO BID [facility]; Protocol Last Admin: 04/19/24 08:55 Dose: 20 mg Quetiapine Fumarate (Quetiapine Fumarate 100 Mg Tablet) 100 mg PO BEDTIME [facility] Last Admin: 04/18/24 21:15 Dose: 100 mg Risperidone (Risperidone 1 Mg Tablet) 1 mg PO DAILY [facility] Last Admin: 04/19/24 08:54 Dose: 1 mg Risperidone (Risperidone 2 Mg Tablet) 2 mg PO BEDTIME [facility] Last Admin: 04/18/24 21:15 Dose: 2 mg Trazodone HCl (Trazodone Hcl 50 Mg Tablet) 50 mg PO BEDTIME MRX1 PRN PRN Reason: Insomnia Last Admin: 04/18/24 21:16 Dose: 50 mg Allergies Allergies Allergy/AdvReac Type Severity Reaction Status Date / Time No Known Allergies Allergy Verified 04/14/24 18:47 Assessment & Plan Assessment & Plan (1) Bipolar 2 disorder: Status: Acute Code(s): F31.81 - Bipolar II disorder (2) PTSD (post-traumatic stress disorder): Status: Acute Code(s): F43.10 - Post-traumatic stress disorder, unspecified (3) ADHD: Status: Acute Code(s): F90.9 - Attention-deficit hyperactivity disorder, unspecified type Plan Patient is a 38-year-old male with history of bipolar disorder, PTSD and ADHD who self presented to ER due to worsening auditory hallucinations for the past 3-4 months. Plan: 04/17 lower prn clonazepam to 1mg po BID PRN. Increase risperidone 1mg po daily and 2mg po qhs- although educated pt on waiting as AH are less. propanolol 20mg BID for essential tremor 04/18: Active on unit, social with peers. attending groups. Patient reports feeling good today; pt stated, I have't had any voices last night or this morning so far. I wish I didn't wait so long til I got help . He reports sleeping well last night. denies SI/HI/VH/AH. Plan to discharge home this week if he continues to improve;pt aware. 04/19: Patient reports feeling great today; pt stated, I feel much better. I'm so glad I came to get help. I feel like I'm starting to feel like myself again . denies SI/HI/VH/AH. He reports sleeping well. Pt reports he plans on taking hydroxyzine today to see if it decreases his anxiety, rather than taking klonopin. Continue current tx plan. Patient educated on: diagnosis and medication risk/benefits Reason for continued inpatient stay Substantial Risk for: med/psych decompensation Time Spent With Patient Time: Total time managing care of this patient today _20___ minutes.
[2024-04-19] MEDS: hydrOXYzine HCL 25 MG TABLET PO (14:10)
[2024-04-19 20:00] VITALS: BP 128/78; PULSE 84; RESP 14; TEMP 36.6; O2SAT 100
[2024-04-19] MEDS: QUEtiapine Fumarate 100 MG TABLET PO (20:31)
[2024-04-19] MEDS: risperiDONE 2 MG TABLET PO (20:32)
[2024-04-20 07:35] VITALS: BP 113/59; PULSE 69; RESP 18; TEMP 36.9; O2SAT 97
[2024-04-20 08:23] VITALS: PULSE 69
[2024-04-20] MEDS: lamoTRIgine 100 MG TABLET 200 MG PO ×2 (08:23→14:31)
[2024-04-20] MEDS: risperiDONE 1 MG TABLET PO (08:23)
[2024-04-20] MEDS: Nicotine 21 MG PATCH.TD24 TRANSDERMA (08:23)
[2024-04-20] MEDS: Propranolol HCL 20 MG TABLET PO ×2 (08:23→20:43)
[2024-04-20] MEDS: clonazePAM 1 MG TABLET PO ×2 (08:29→17:04)
--- NOTE | 2024-04-20 09:32 | P.PNPSI_ITS ---
Subjective Subjective Date of Service: 04/20/24 Reason For Visit: Psychosis Subjective Notes: Conditional Voluntary Interim History: Patient reports feeling good and ready to go home ; pt plans on following up with his outpatient providers. He plans on going to [employer] and joining a gym to keep himself busy . denies SI/HI/VH/AH. Medication Compliance: Yes Side effects from medications: No Attending Groups: Yes Review of Systems Constitutional: Reports as per HPI Eyes: Reports as per HPI Reports as per HPI Cardiovascular: Reports as per HPI Respiratory: Reports as per HPI Gastrointestinal: Reports as per HPI Genitourinary: Reports as per HPI Musculoskeletal: Reports as per HPI Skin/Breast: Reports as per HPI Reports as per HPI Psychiatric: Reports as per HPI Endocrine: Reports as per HPI Hematologic/Lymphatic: Reports as per HPI Allergic/Immunologic: Reports as per HPI Mental Status Exam Mental Status Exam Narrative: Pt is alert and oriented; behavior is cooperative; dressed in casual attire; mood is described as good ; eye contact appropriate; Speech is normal rate, volume and not pressured; thought process is organized and goal directed; Thought content is on tx; denies SI/HI/VH/AH. Diagnostics Vital Signs (24Hr): Vital Signs - 24 hr 04/19/24 20:00 04/20/24 07:35 04/20/24 08:23 Temperature 97.8 F 98.4 F Pulse Rate 84 69 69 Respiratory Rate 14 18 Blood Pressure 128/78 113/59 L Pulse Oximetry 100 97 Oxygen Delivery Method Room Air Room Air BMI result Body Mass Index 20.4 Labs 04/14/24 19:33 04/14/24 19:33 Medications Medications Current Medications Acetaminophen (Acetaminophen 325 Mg Tablet) 650 mg PO Q6H PRN PRN Reason: Headache/Pain Mild Scale (1-3) Last Admin: 04/19/24 08:55 Dose: 650 mg Al Hydroxide/Mg Hydroxide (Magnesium Hydrox/Alum Hydrox 30 Ml Oral.Susp) 30 ml PO Q6H PRN PRN Reason: Heartburn/Nausea Clonazepam (Clonazepam 1 Mg Tablet) 1 mg PO BID PRN PRN Reason: Anxiety Last Admin: 04/20/24 08:29 Dose: 1 mg Hydroxyzine HCl (Hydroxyzine Hcl 25 Mg Tablet) 25 mg PO Q6H PRN PRN Reason: Anxiety Last Admin: 04/19/24 14:10 Dose: 25 mg Ibuprofen (Ibuprofen 600 Mg Tablet) 600 mg PO Q6H PRN PRN Reason: Pain, Mild 1-3,fever,headache Last Admin: 04/19/24 08:55 Dose: 600 mg Lamotrigine (Lamotrigine 100 Mg Tablet) 200 mg PO BID@0800,1400 [facility] Last Admin: 04/20/24 08:23 Dose: 200 mg Lidocaine (Lidocaine 4 % Patch Adh..Patch) 1 patch TRANSDERMA DAILY [facility]; Protocol Last Admin: 04/20/24 09:15 Dose: Not Given Magnesium Hydroxide (Milk Of Magnesia 30 Ml Oral.Susp) 30 ml PO DAILY PRN PRN Reason: Constipation Nicotine (Nicotine 21 Mg Patch.Td24) 21 mg TRANSDERMA DAILY [facility] Last Admin: 04/20/24 08:23 Dose: 21 mg Nicotine Polacrilex (Nicotine Polacrilex 2 Mg Gum) 4 mg BUCCAL Q2H PRN PRN Reason: Nicotine Cravings Last Admin: 04/15/24 12:16 Dose: 4 mg Propranolol HCl (Propranolol Hcl 20 Mg Tablet) 20 mg PO BID [facility]; Protocol Last Admin: 04/20/24 08:23 Dose: 20 mg Quetiapine Fumarate (Quetiapine Fumarate 100 Mg Tablet) 100 mg PO BEDTIME [facility] Last Admin: 04/19/24 20:31 Dose: 100 mg Risperidone (Risperidone 1 Mg Tablet) 1 mg PO DAILY [facility] Last Admin: 04/20/24 08:23 Dose: 1 mg Risperidone (Risperidone 2 Mg Tablet) 2 mg PO BEDTIME [facility] Last Admin: 04/19/24 20:32 Dose: 2 mg Trazodone HCl (Trazodone Hcl 50 Mg Tablet) 50 mg PO BEDTIME MRX1 PRN PRN Reason: Insomnia Last Admin: 04/18/24 21:16 Dose: 50 mg Allergies Allergies Allergy/AdvReac Type Severity Reaction Status Date / Time No Known Allergies Allergy Verified 04/14/24 18:47 Assessment & Plan Assessment & Plan (1) Bipolar 2 disorder: Status: Acute Code(s): F31.81 - Bipolar II disorder (2) PTSD (post-traumatic stress disorder): Status: Acute Code(s): F43.10 - Post-traumatic stress disorder, unspecified (3) ADHD: Status: Acute Code(s): F90.9 - Attention-deficit hyperactivity disorder, unspecified type Plan Patient is a 38-year-old male with history of bipolar disorder, PTSD and ADHD who self presented to ER due to worsening auditory hallucinations for the past 3-4 months. Plan: 04/17 lower prn clonazepam to 1mg po BID PRN. Increase risperidone 1mg po daily and 2mg po qhs- although educated pt on waiting as AH are less. propanolol 20mg BID for essential tremor 04/18: Active on unit, social with peers. attending groups. Patient reports feeling good today; pt stated, I have't had any voices last night or this morning so far. I wish I didn't wait so long til I got help . He reports sleeping well last night. denies SI/HI/VH/AH. Plan to discharge home this week if he continues to improve;pt aware. 04/19: Patient reports feeling great today; pt stated, I feel much better. I'm so glad I came to get help. I feel like I'm starting to feel like myself again . denies SI/HI/VH/AH. He reports sleeping well. Pt reports he plans on taking hydroxyzine today to see if it decreases his anxiety, rather than taking klonopin. Continue current tx plan. 04/20: Patient reports feeling good and ready to go home ; pt plans on following up with his outpatient providers. He plans on going to [employer] and joining a gym to keep himself busy . denies SI/HI/VH/AH. Patient educated on: diagnosis, medication risk/benefits and therapeutic strategies Reason for continued inpatient stay Substantial Risk for: stable for discharge Time Spent With Patient Time: Total time managing care of this patient today _20___ minutes.
[2024-04-20] MEDS: hydrOXYzine HCL 25 MG TABLET PO ×2 (14:31→21:44)
[2024-04-20 20:00] VITALS: BP 132/83; PULSE 91; RESP 18; TEMP 37.1; O2SAT 99
[2024-04-20] MEDS: Nicotine Polacrilex 2 MG GUM 4 MG BUCCAL (20:13)
[2024-04-20] MEDS: QUEtiapine Fumarate 100 MG TABLET PO (20:43)
[2024-04-20] MEDS: risperiDONE 2 MG TABLET PO (20:43)
[2024-04-20] MEDS: traZODone HCL 50 MG TABLET PO (21:46)
[2024-04-21 07:35] VITALS: BP 136/65; PULSE 87; RESP 14; TEMP 36.8; O2SAT 98
[2024-04-21] MEDS: lamoTRIgine 100 MG TABLET 200 MG PO (08:42)
[2024-04-21] MEDS: clonazePAM 1 MG TABLET PO (08:42)
[2024-04-21] MEDS: risperiDONE 1 MG TABLET PO (08:42)
[2024-04-21] MEDS: Propranolol HCL 20 MG TABLET PO (08:42)
[2024-04-21] MEDS: Nicotine 21 MG PATCH.TD24 TRANSDERMA (08:43)
--- NOTE | 2024-04-21 09:39 | P.DS_ITS ---
DS: Providers Provider Date of Service: 04/21/24 Date of admission: 04/14/24 22:12 Date of discharge: 04/21/24 Primary care physician: Analy Physician Admitting clinician: Tawana Wilson Attending physician on admission: Elton Paiz Attending physician on discharge: Lorenzo Gtz Discharging clinician: Tawana Wilson DS: Diagnosis Discharge Diagnosis (1) Bipolar 2 disorder: Status: Acute (2) PTSD (post-traumatic stress disorder): Status: Acute (3) ADHD: Status: Acute DS: Medications Discharge Medications Home Medications: Previous Rx's ?Medication ?Instructions ?Recorded clonazepam 1 mg tablet 1 mg PO BID PRN Anxiety 14 days 04/20/24 #28 tabs hydroxyzine HCl 25 mg tablet 25 mg PO BID PRN Anxiety 30 days 04/20/24 #60 tabs lamotrigine 200 mg tablet 200 mg PO BID 30 days #60 tabs 04/20/24 propranolol 20 mg tablet 20 mg PO BID 30 days #60 tabs 04/20/24 quetiapine 100 mg tablet 100 mg PO BEDTIME 30 days #30 tabs 04/20/24 risperidone 1 mg tablet 1 mg PO DAILY 30 days #30 tabs 04/20/24 risperidone 2 mg tablet 2 mg PO BEDTIME 30 days #30 tabs 04/20/24 Mental Status Exam Mental Status Exam Narrative: Pt is alert and oriented; behavior is cooperative; dressed in casual attire; mood is described as good ; eye contact appropriate; Speech is normal rate, volume and not pressured; thought process is organized and goal directed; Thought content is on tx; denies SI/HI/VH/AH. Data Data Completed and Pending Completed studies during hospitalization [Text1]: 04/14/24 04/14/24 04/15/24 19:33 19:47 11:33 WBC 6.1 RBC 4.40 L Hgb 14.4 Hct 41.0 L MCV 93.2 MCH 32.7 MCHC 35.1 RDW 11.9 Plt Count 218 MPV 10.1 Immature Gran % (Auto) 0.2 Neut % (Auto) 59.1 Lymph % (Auto) 31.9 [place] % (Auto) 7.5 Eos % (Auto) 1.0 Baso % (Auto) 0.3 Lymph # (Auto) 2.0 [place] # (Auto) 0.5 Eos # (Auto) 0.1 Baso # (Auto) 0.0 Abs Immat Gran (auto) 0.01 Absolute Neuts (auto) 3.6 Absolute Nucleated RBC 0.000 Nucleated RBC % (auto) 0.0 Sodium 145 Potassium 3.9 Chloride 111 H Carbon Dioxide 26 Anion Gap 12 BUN 12 Creatinine 0.80 Estim Creat Clear Calc 129.1 Estimated GFR > 60 Random Glucose 99 Estimat Average Glucose 100 Hemoglobin A1c % 5.1 Calcium 9.4 Total Bilirubin 0.8 AST 18 ALT 25 Alkaline Phosphatase 88 Total Protein 7.0 Albumin 4.7 Triglycerides 26 Cholesterol 153 LDL Cholesterol, Calc 82 HDL Cholesterol 66 Vitamin B12 720 Folate 9.8 TSH 0.54 Free T4 1.06 Urine Color Yellow Urine Appearance Clear Urine pH 6.5 Ur Specific [place] 1.020 Urine Protein Trace Urine Glucose (UA) Negative Urine Ketones Trace Urine Blood Negative Urine Nitrite Negative Ur Leukocyte Esterase Negative Urine Opiates Screen Not Detected Ur Buprenorphine Scrn Not Detected Ur Oxycodone Screen Not Detected Urine Methadone Screen Not Detected Urine Fentanyl Screen Not Detected Ur Barbiturates Screen Not Detected Ur Phencyclidine Scrn Not Detected Ur Amphetamines Screen Not Detected U Benzodiazepines Scrn POSITIVE H Urine Cocaine Screen Not Detected U Marijuana (THC) Screen POSITIVE H Ethyl Alcohol < 10 Influenza Type A (PCR) NEGATIVE Influenza Type B (PCR) NEGATIVE RSV RNA Qual (PCR) NEGATIVE SARS-CoV-2 RNA (RT-PCR) NEGATIVE DS: Summary Hospital Course Hospital Course: Patient is a 38-year-old male with history of bipolar disorder, PTSD and ADHD who self presented to ER due to worsening auditory hallucinations for the past 3-4 months. Per crisis report, patient reports he went to the [facility] last week and they took him off Adderall which helped his anxiety but his hallucinations continued. He reports hallucinations becoming more frequent and voices are threatening. 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 Patient stated, I'm stressed beyond belief right now and these hallucinations started because of all the stress. My family is worried . Patient reports he is struggling to manage a level of stress he is under. denies any command hallucinations. He reports poor sleep. denies SI/HI/VH. denies any history of hallucinations prior to February 2024. Denies any history of inpatient level of care or PHP. Denies history of SI/SIB. He does report outpatient therapy weekly. Denies history of substance use; occasionally smokes marijuana. Utox positive for marijuana. During admission assessment, patient presents alert and oriented x3. Calm and cooperative. Patient reports feeling anxious ; patient reports auditory hallucinations starting in December 2023 while he was at a [employer] convention. He reports voices telling him that everyone knows that he is being accused of being a rapist and a child molester . Patient states since then voices have been consistent but are starting to become more and more frequent. He reports when he is at his father's house they get louder which resulted in patient telling his father, he plans on not returning after discharge. denies SI/HI/VH. denies any history of psychosis. Denies any substance use other than occasionally smoking marijuana. He reports being medication compliant. Discussed medications; we will start Risperdal 1 mg PO BID; risks/benefits reviewed. Patient agreed to trial. Plan: CV 15 minute safety checks Obtain collateral Continue home medications Start: Risperdal 1mg PO BID Encourage groups Discharge planning lower prn clonazepam to 1mg po BID PRN. Increase risperidone 1mg po daily and 2mg po qhs- although educated pt on waiting as AH are less. propanolol 20mg BID for essential tremor Active on unit, social with peers. attending groups. Patient reports feeling good today; pt stated, I have't had any voices last night or this morning so far. I wish I didn't wait so long til I got help . He reports sleeping well last night. denies SI/HI/VH/AH. Plan to discharge home this week if he continues to improve;pt aware. Patient reports feeling great today; pt stated, I feel much better. I'm so glad I came to get help. I feel like I'm starting to feel like myself again . denies SI/HI/VH/AH. He reports sleeping well. Pt reports he plans on taking hydroxyzine today to see if it decreases his anxiety, rather than taking klonopin. Continue current tx plan. Patient reports feeling good and ready to go home ; pt plans on following up with his outpatient providers. He plans on going to [employer] and joining a gym to keep himself busy . denies SI/HI/VH/AH. Status at Discharge Cognitive/behavioral status at discharge: Patient has insight and demonstrates good judgment in terms of wanting to pursue treatment. Patient is not in imminent risk of harm to self or others and has a safety plan that includes presenting to the closest ER or calling 911 if feeling unsafe. Functional status at discharge: independent ambulation Overall status at discharge: patient is back to baseline Time Spent with Patient Time attestation: Total time managing care of this patient today _20___ minutes. Time spent: Less than 30 minutes Discharge Plan Discharge Anticipated Discharge Date/Time: 04/21/24 09:30 Patient Disposition: Home, Self-Care Discharge Diagnosis: Bipolar d/o, PTSD, ADHD Referrals: Dr. Batsheva Lou (Psychiatry) [Other] - 05/03/24 2:00 pm (IN OFFICE INTAKE APPOINTMENT) Lorenzo (Therapy) [Other] - 04/21/24 10:30 am Ludwin Cash (Peer Support) [Other] - 1 Week (*You can follow up with the peer support center listed above. The [facility] is a grassroots Peer Support, Advocacy, and Training organization with a focus on harm reduction and human rights.) [facility] (Peer Support) [Other] - 1 Week (*You can follow up with the peer support program listed above. [facility] welcomes all people in recovery from substance use and those affected by substance use. Services are free and provide [id number] supports including peer facilitated support; relapse prevention and tobacco cessation support groups; social events; access to computers for job readiness/job search activities; and advocacy and recovery coaching.) CRISIS LINES [Other] - 1 Week ([facility] ([facility]) [phone]) [facility] [Provider Group] - 1 Week ([facility] was added to patients chart. Please call [phone] to schedule your follow up appt.) Discharge Medications: New risperidone 1 mg Tablet 1 mg PO DAILY 30 Days Qty: 30 0RF risperidone 2 mg Tablet 2 mg PO BEDTIME 30 Days Qty: 30 0RF lamotrigine 200 mg tablet 200 mg PO BID 30 Days Qty: 60 0RF propranolol 20 mg Tablet 20 mg PO BID 30 Days Qty: 60 0RF Protocol: Hold for SBP/HR < HOLD for SBP < : 90 HOLD for HR < : 60 hydroxyzine HCl 25 mg Tablet 25 mg PO BID PRN (Reason: Anxiety) 30 Days Qty: 60 0RF clonazepam 1 mg Tablet 1 mg PO BID PRN (Reason: Anxiety) 14 Days Qty: 28 0RF Continued quetiapine 100 mg tablet 100 mg PO BEDTIME 30 Days Qty: 30 0RF Discontinued quetiapine 25 mg tablet 25 mg PO BID lamotrigine 200 mg tablet 200 mg PO BID clonazepam 1 mg tablet 1 mg PO QID PRN (Reason: Anxiety) Discharge Orders: Discharge Order (Routine); Ordered 04/21/24 Ordered By: Tawana Wilson Diet: Regular diet Activity on Discharge: As tolerated Stand Alone Forms: Patient Portal Discharge page, Community Support Print Language: Yakut Care Plan Goals: Maintain mood and safe behaviors Take medications as prescribed Practice coping skills Continue with outpatient providers and reach out to them as needed Health Concerns: Mood stability and behaviors Plan of Treatment: Follow up with your PCP, psychiatric provider and other outpatient providers regarding above concerns Take medications as prescribed Assessment: Patient has insight and demonstrates good judgment in terms of wanting to pursue treatment. Patient is not in imminent risk of harm to self or others and has a safety plan that includes presenting to the closest ER or calling 911 if feeling unsafe. Discharge Date/Time: 04/21/24 09:44
== END 2024-04-21 09:44 | disposition home or self-care (01) | DRG 753 ==
LOC: HO.ED 22:20 → HO.PADLT16 22:31
PROVIDERS: Registered Nurse Emergency; Admitting Provider Psychiatry & Neurology Psychiatry; Emergency Provider Emergency Medicine; Responsible Provider Registered Nurse; Visit Provider Psychiatry & Neurology Psychiatry
DX: F31.81 Bipolar II disorder (principal); F43.10 Post-traumatic stress disorder, unspecified; F90.9 Attention-deficit hyperactivity disorder, unspecified type; Z20.822 Contact with and (suspected) exposure to COVID-19; Z79.899 Other long term (current) drug therapy
CPT/HCPCS: 0241U; 36415; 80053; 80061; 80307; 81003; 82607; 82746; 83036; 84439; 84443; 85025; 99285

== ENCOUNTER → 2024-04-14 22:12 | Outpatient (BNV) | payer BC, SELFPAY | PROVIDERS: Admitting Provider Psychiatry & Neurology Psychiatry; Emergency Provider Emergency Medicine; Responsible Provider Registered Nurse; Visit Provider Social Worker | DX: F31.81 Bipolar II disorder (principal); F43.11 Post-traumatic stress disorder, acute; F90.9 Attention-deficit hyperactivity disorder, unspecified type | CPT/HCPCS: 90792; 99232 ==

== ENCOUNTER 2024-04-23 16:57 | Inpatient (IN) | payer BC, SELFPAY ==
--- NOTE | 2024-04-23 17:07 | ED_ITS ---
HPI - Psych General Chief Complaint: Psychiatric Symptoms Stated Complaint: SI Time Seen by Provider: 04/23/24 17:31 Source: patient, family and old records reviewed Mode of arrival: ambulatory Limitations: no limitations History of Present Illness ED Provider: DAWIT ISAACS Narrative: 38 yo male with PMH of bipolar, PTSD, ADHD recent admit and DC here 04/21 went home now feeling worse with AH, anxiety, paranoia, no SI/HI. Brought back given return of symptoms. Has no medical complaints. He is calm and cooperative on arrival. MD complaint: anxiety and hallucinations Onset (ago): day(s) (1) Duration: getting worse History of same: Yes Relieving factors: none Exacerbating factors: other Context: significant life stressor Associated psychiatric symptoms: depression and auditory hallucinations Associated symptoms: denies other symptoms Treatments prior to arrival: none Related Data Previous Rx's ?Medication ?Instructions ?Recorded clonazepam 1 mg tablet 1 mg PO BID PRN Anxiety 14 days 04/20/24 #28 tabs hydroxyzine HCl 25 mg tablet 25 mg PO BID PRN Anxiety 30 days 04/20/24 #60 tabs lamotrigine 200 mg tablet 200 mg PO BID 30 days #60 tabs 04/20/24 propranolol 20 mg tablet 20 mg PO BID 30 days #60 tabs 04/20/24 quetiapine 100 mg tablet 100 mg PO BEDTIME 30 days #30 tabs 04/20/24 risperidone 1 mg tablet 1 mg PO DAILY 30 days #30 tabs 04/20/24 risperidone 2 mg tablet 2 mg PO BEDTIME 30 days #30 tabs 04/20/24 Allergies Allergy/AdvReac Type Severity Reaction Status Date / Time No Known Allergies Allergy Verified 04/23/24 17:08 Review of Systems Review of Systems: Constitutional : No Fever, No Chills ENT/Mouth : No Ear Pain, No Nasal Congestion, No sore throat Eyes: No Eye Pain, No Swelling, No Redness Cardiovascular : No Chest Pain, No SOB Respiratory : No Cough, No Sputum, No Dyspnea Gastrointestinal : No Nausea, No Vomiting, No Diarrhea, No Hematochezia, No Melena Genitourinary : No Dysuria, No Urinary Frequency, No Hematuria Musculoskeletal : No Myalgias Skin : No Skin Lesions, No rash Neuro : No Weakness, No Numbness, No Paresthesias, No Dizziness, No Headache Psych : positive Anxiety, positive Depression, no SI/HI All other systems reviewed and are negative [facility] Past Medical History Attestation statement: The following information was validated with the patient. Source: old records reviewed Medical History Auditory hallucination Bipolar 2 disorder PTSD (post-traumatic stress disorder) ADHD Social History Social History Household Members: Family Housing: House Do you presently have visiting nurse or other home services: No Patient Tobacco Use Status: Never used Tobacco e-Cigarette/Vaping Use: Currently Using Second Hand Smoke Exposure: Yes Substance Use Type: Marijuana Advance Directives: No Advance Directives Information Provided: Yes Do you have a plan to hurt others: No Plan service: No Sexual orientation: Straight/Heterosexual Physical Exam Vital Signs: Vital Signs: Last Vital Signs Temp 97.9 F 04/23/24 17:08 Pulse 81 04/23/24 17:08 Resp 18 04/23/24 17:08 BP 132/68 04/23/24 17:08 Pulse Ox 98 04/23/24 17:08 O2 Del Method Room Air 04/23/24 17:08 BMI result Body Mass Index 23.8 Appearance: Alert. Oriented X3. No acute distress. calm and cooperative Eyes: Pupils equal, round and reactive to light. ENT: Pharynx normal. Neck: Normal inspection. Neck supple. CVS: Normal heart rate and rhythm. Pulses normal. Respiratory: No respiratory distress. Breath sounds normal. Abdomen: Soft and non-tender. Skin: Skin warm and dry. Normal skin color. Extremities: No lower extremity edema. Neuro: Oriented X 3. No motor deficit. No sensory deficit. CN2-12 intact Course Course Course Narrative: This is an RME: Additional HPI, ROS, PE not included below will be deferred to primary provider. RME assessment and note performed by: Miradna Pierce PA-C This is a 38 y/o M who presents to the ER with complaints of auditory hallucinations, increased anxiety. No command hallucinations. Recent admission psychiatrically last week. No SI or HI. Reporting frustration. has been taking meds as prescribed. Plan: Labs, UA, care team consult. Medical Decision Making Medical Decision Making MDM Narrative: 38 yo male with PMH of bipolar, PTSD, ADHD recent admit and DC here 04/21 went home and states he had AH, anxiety and feels like he needed to come back. He has no medical complaints. At this time basic labs, CARE team consult ordered Differential Diagnosis Differential Diagnoses: The differential diagnosis associated with the presentation includes bipolar, PTSD Admission/Observation Consideration of admission/observation: Escalation of care including admission/observation considered physican observation started at 540pm pending CARE team Lab Data MDM Lab Attestation statement: I reviewed the patient's lab results. Independent Historian Clinical information obtained from an independent historian. History obtained from or confirmed by: Other External Record Review External record reviewed: Inpatient record Discharge Plan Discharge Clinical Impression: PTSD (post-traumatic stress disorder) Patient Disposition: Still a Patient Prescriptions: No Action risperidone 1 mg Tablet 1 mg PO DAILY 30 Days Qty: 30 0RF risperidone 2 mg Tablet 2 mg PO BEDTIME 30 Days Qty: 30 0RF lamotrigine 200 mg tablet 200 mg PO BID 30 Days Qty: 60 0RF propranolol 20 mg Tablet 20 mg PO BID 30 Days Qty: 60 0RF Protocol: Hold for SBP/HR < HOLD for SBP < : 90 HOLD for HR < : 60 hydroxyzine HCl 25 mg Tablet 25 mg PO BID PRN (Reason: Anxiety) 30 Days Qty: 60 0RF clonazepam 1 mg Tablet 1 mg PO BID PRN (Reason: Anxiety) 14 Days Qty: 28 0RF quetiapine 100 mg tablet 100 mg PO BEDTIME 30 Days Qty: 30 0RF Print Language: [place]an
[2024-04-23 17:08] VITALS: BP 132/68; PULSE 81; RESP 18; TEMP 36.6; O2SAT 98; BMI 23.8
[2024-04-23 17:32] LABS: MANUAL DIFF FLAG NO
[2024-04-23 17:45] LABS: Amphetamine Screen Urine Not Detected (Not Detect); Barbiturates, Urine Not Detected (Not Detect); Benzodiazepines Screen Urine Not Detected (Not Detect); Buprenorphine Scr Not Detected (Not Detect); Cannabinoid Screen Urine POSITIVE (Not Detect); Cocaine Screen Urine Not Detected (Not Detect); Fentanyl, urine Not Detected (Not Detect); Methadone Screen, Urine Not Detected (Not Detect); Opiate Screen Urine Not Detected (Not Detect); Oxycodone Screen Urine Not Detected (Not Detect); Phencyclidine Screen Urine Not Detected (Not Detect)
[2024-04-23 17:49] LABS: Alanine Aminotransferase 23 U/L (0-40); Alkaline Phosphatase 73 U/L (39-117); Anion Gap 10 (12-20); Aspartate Amino Transferase 23 U/L (5-37); Bilirubin Direct 0.1 mg/dL (0.0-0.5); Bilirubin Total 0.3 mg/dL (0.0-1.0); Blood Urea Nitrogen 16 mg/dL (9-16); Calcium 8.3 mg/dL (8.4-10.2); Carbon Dioxide 32 mmol/L (22-29); Chloride 106 mmol/L (96-108); Creatinine Clr Calc Pharmacy 154.4; Estimated Glomerular Filt Rate > 60; Ethanol < 10 mg/dL; Glucose Random 90 mg/dL (60-115); Potassium 3.6 mmol/L (3.3-5.1); Sodium 144 mmol/L (135-145); Total Protein 6.2 g/dL (6.5-8.0)
[2024-04-23 17:52] LABS: Basophils Percent Auto 0.1 % (0-2); Eosinophils Absolute Auto 0.1 X10*3/uL (0.0-0.4); Hematocrit 37.7 % (42.0-52.0); Hemoglobin 12.6 g/dl (14.0-18.0); Imm Gran Abs Auto 0.05 X10*3/uL (0.00-0.03); Imm Gran Pct Auto 0.5 % (0.0-0.4); Lymphocytes Absolute Auto 2.4 X10*3/uL (1.2-4.9); Lymphocytes Percent Auto 24.8 % (20-40); Mean Corpuscular HGB Conc 33.4 g/dl (31.0-36.0); Mean Corpuscular Hemoglobin 32.1 pg (27.0-33.0); Mean Corpuscular Volume 96.2 fL (80.0-98.0); Monocytes Absolute Auto 0.6 X10*3/uL (0.1-1.2); Monocytes Percent Auto 6.4 % (2-11); Neutrophils Absolute Auto 6.5 x10*3/uL (2.0-8.3); Neutrophils Percent Auto 67.2 % (45-73); Platelet Count 219 X10*3/uL (160-400); Red Blood Count 3.92 X10*6/uL (4.60-5.80); Red Cell Distribution Width 12.2 % (11.0-16.0); White Blood Count 9.7 X10*3/uL (4.8-10.8)
[2024-04-23] MEDS: clonazePAM 1 MG TABLET PO (20:06)
[2024-04-23] MEDS: risperiDONE 2 MG TABLET PO (20:06)
[2024-04-23 20:07] VITALS: BP 117/75; PULSE 81
[2024-04-23] MEDS: QUEtiapine Fumarate 100 MG TABLET PO (20:07)
[2024-04-23] MEDS: Propranolol HCL 20 MG TABLET PO (20:07)
[2024-04-23 20:09] VITALS: BP 117/75; PULSE 81; RESP 16; O2SAT 98
[2024-04-23] MEDS: Nicotine 21 MG PATCH.TD24 TRANSDERMA (20:30)
--- NOTE | 2024-04-23 21:23 | PHA.MEDREC ---
Pharmacy Consult ? Medication Reconciliation Pharmacy has REVIEWED the medication reconciliation COMPLETED by nursing. Claims match.
[2024-04-23 22:10] LABS: Alanine Aminotransferase 21 U/L (0-40); Albumin Level 3.3 g/dL (3.5-5.0); Alkaline Phosphatase 63 U/L (39-117); Anion Gap 8 (12-20); Aspartate Amino Transferase 18 U/L (5-37); Bilirubin Total 0.2 mg/dL (0.0-1.0); Blood Urea Nitrogen 17 mg/dL (9-16); Calcium 7.9 mg/dL (8.4-10.2); Carbon Dioxide 28 mmol/L (22-29); Chloride 109 mmol/L (96-108); Creatinine Clr Calc Pharmacy 158.7; Estimated Glomerular Filt Rate > 60; Glucose Random 110 mg/dL (60-115); Sodium 141 mmol/L (135-145); Total Protein 5.2 g/dL (6.5-8.0)
[2024-04-23 22:25] VITALS: BP 120/66; PULSE 101; RESP 18; TEMP 37.1; O2SAT 97
[2024-04-23] MEDS: traZODone HCL 50 MG TABLET PO (23:32)
[2024-04-23] MEDS: hydrOXYzine HCL 25 MG TABLET PO (23:32)
[2024-04-23] MEDS: Nicotine Polacrilex Lozenge 2 MG LOZENGE BUCCAL (23:33)
[2024-04-23 23:57] VITALS: BMI 23.2
--- NOTE | 2024-04-24 | PC.ADMIT ---
Reynaldo is being admitted from the [facility], POD on a CV for Bipolar II and KENNEDY following increasing paranoia at home. A&O X's 4, pleasant and cooperative with admission process. Patient states that he doesn't know what happened. When I left here I was feeling really good and then I went to my Dad's house. I don't know why I felt so scared and nervous. My dad has never done anything to me. It didn't make any sense. I started getting really paranoid, so I figured I better come in. C/O auditory hallucinations not command in nature. It's like I have a positive voice and a negative one. Some times I'm like wait is this real or not and then it makes me even more paranoid. I need something to help stop all these hallucinations. Denies visual hallucinations as well as suicidal/homicidal ideation. Reynaldo endorses depression, anxiety and auditory hallucinations. Patient oriented to unit, all admission documentation completed
[2024-04-24] MEDS: chlorproMAZINE HCl 25 MG TABLET 50 MG PO (02:16)
[2024-04-24] MEDS: Nicotine Polacrilex Lozenge 2 MG LOZENGE BUCCAL ×6 (02:25→22:54)
[2024-04-24 07:29] VITALS: BP 121/56; PULSE 98; RESP 16; TEMP 37.2; O2SAT 98
[2024-04-24 08:24] LABS: Cholesterol 139 mg/dL (<200); HDL Cholesterol 59 mg/dL (>40); LDL Cholesterol Calculated 74 mg/dL (<100); Triglycerides 33 mg/dL (<150)
[2024-04-24] MEDS: lamoTRIgine 100 MG TABLET 200 MG PO ×2 (08:42→18:00)
[2024-04-24] MEDS: risperiDONE 1 MG TABLET PO (08:42)
[2024-04-24] MEDS: Propranolol HCL 20 MG TABLET PO ×2 (08:42→21:30)
[2024-04-24] MEDS: Nicotine 21 MG PATCH.TD24 TRANSDERMA (08:43)
[2024-04-24] MEDS: clonazePAM 1 MG TABLET PO ×2 (08:54→17:57)
--- NOTE | 2024-04-24 11:09 | HO.PSYADMNOT ---
HPI Date of Service: 04/24/24 Chief Complaint: psychosis Sources of Information: patient interviewed, chart reviewed and crisis/core team assessment reviewed HPI Subjective Notes: [place]oyos Warning and Conditional Voluntary Narrative: The patient is a 38-year-old male with a past history of psychosis who was recently discharged a few days ago from this facility. He reported that after being discharged, he went to his parent's house and he started hearing voices that threaten him. His father brought him to the emergency room due to psychotic symptoms, assessed by crisis and transferring to this facility for psychiatric stabilization. On the intake interview the patient reported that he was fully compliant with treatment but while he was at home he felt overwhelmed and stressed, he admitted that he was having auditory hallucinations insight his father's house. He also reported increased anxiety, fear and paranoia, he adamantly denies use of any substances and he stated there were no changes in his treatment plan. He stated that he feels safe in the unit. We will gather more collateral information continue with a ruler workout. He agreed to continue on the current treatment. He understood Hoyos warning. Past Psychiatric History: Prescriber: Chelsea Leyva Counseling Therapist: Lorenzo Sloan SA/BRENDA 1st inpatient psychiatric admission in April 2024 at [facility]. Patient reports he has been taking Lamictal and Seroquel for the past 8-10 years. Medical Evaluation Reviewed: Yes [facility] Medical History Auditory hallucination Bipolar 2 disorder PTSD (post-traumatic stress disorder) ADHD Family History: Grandmother: Schizophrenia Social History: Lives with dad. Single. No kids. Bachelor's degree. Works as esthetician permanent makeup artist. Trauma History: Yes Diagnostics Vital Signs (24Hr): Vital Signs - 24 hr 04/23/24 17:08 04/23/24 20:07 04/23/24 20:09 Temperature 97.9 F Pulse Rate 81 81 81 Respiratory Rate 18 16 Blood Pressure 132/68 117/75 117/75 Pulse Oximetry 98 98 Oxygen Delivery Method Room Air Room Air 04/23/24 22:25 04/24/24 07:29 Temperature 98.7 F 98.9 F Pulse Rate 101 H 98 Respiratory Rate 18 16 Blood Pressure 120/66 121/56 L Pulse Oximetry 97 98 Oxygen Delivery Method Room Air Room Air BMI result Body Mass Index 23.2 Labs 04/23/24 17:25 04/23/24 21:41 Labs: Laboratory Results - last 48 hr 04/23/24 04/23/24 04/24/24 17:25 21:41 07:40 WBC 9.7 RBC 3.92 L Hgb 12.6 L Hct 37.7 L MCV 96.2 MCH 32.1 MCHC 33.4 RDW 12.2 Plt Count 219 MPV 10.0 Immature Gran % (Auto) 0.5 H Neut % (Auto) 67.2 Lymph % (Auto) 24.8 [place] % (Auto) 6.4 Eos % (Auto) 1.0 Baso % (Auto) 0.1 Lymph # (Auto) 2.4 [place] # (Auto) 0.6 Eos # (Auto) 0.1 Baso # (Auto) 0.0 Abs Immat Gran (auto) 0.05 H Absolute Neuts (auto) 6.5 Absolute Nucleated RBC 0.000 Nucleated RBC % (auto) 0.0 Sodium 144 141 Potassium 3.6 4.0 Chloride 106 109 H Carbon Dioxide 32 H 28 Anion Gap 10 L 8 L BUN 16 17 H Creatinine 0.74 0.72 Estim Creat Clear Calc 154.4 158.7 Estimated GFR > 60 > 60 Random Glucose 90 110 Calcium 8.3 L D 7.9 L Total Bilirubin 0.3 0.2 Direct Bilirubin 0.1 AST 23 18 ALT 23 21 Alkaline Phosphatase 73 63 Total Protein 6.2 L 5.2 L Albumin 4.0 3.3 L Triglycerides 33 Cholesterol 139 LDL Cholesterol, Calc 74 HDL Cholesterol 59 Urine Opiates Screen Not Detected Ur Buprenorphine Scrn Not Detected Ur Oxycodone Screen Not Detected Urine Methadone Screen Not Detected Urine Fentanyl Screen Not Detected Ur Barbiturates Screen Not Detected Ur Phencyclidine Scrn Not Detected Ur Amphetamines Screen Not Detected U Benzodiazepines Scrn Not Detected Urine Cocaine Screen Not Detected U Marijuana (THC) Screen POSITIVE H Ethyl Alcohol < 10 Meds/Allergies Allergies Allergies Allergy/AdvReac Type Severity Reaction Status Date / Time No Known Allergies Allergy Verified 04/23/24 17:08 Mental Status Exam Mental Status Exam Patient Appearance: Well Grooomed and Appropriate Patient Orientation: Person and Situation Level of Consciousness: Awake and Appropriate Patient Behavior: Guarded and Passive Mood Description: Withdrawn Affect Description: Constricted Patient Cognition Impaired: Yes Ability to Follow Directions: Good Speech Pattern: Clear Hallucinations: Auditory Delusions: Paranoid Ideation and Ideas of Reference Thought Process: Distracted and Slowed Thinking Thought Content: positive for [place] and positive for Poverty of Content Judgement: Fair Assessment & Plan Assessment & Plan (1) PTSD (post-traumatic stress disorder): Status: Acute Code(s): F43.10 - Post-traumatic stress disorder, unspecified (2) Unspecified psychosis: Status: Acute Code(s): F29 - Unspecified psychosis not due to a substance or known physiological condition Plan The patient is an adult male with a history of mood disorder, psychosis and PTSD who was readmitted for exacerbation of psychotic symptoms without a clear stressor. He was assessed by crisis and transferred here for continuation of care. Plan 1. Gather collateral information. 2. 15 minute checks. 3. Continue with antipsychotics and mood stabilizers as before. 4. Continue with medical workout. Patient educated on: diagnosis, therapeutic strategies and medical condition Reason for continued inpatient stay Substantial Risk for: inability to function, rapid decompensation and med/psych decompensation Statement Statement: I have reviewed the history and physical and performed a pertinent examination on my patient. No changes have occurred unless specified. If the History and Physical was not performed prior to admission, the Hospitalist's service will be consulted for completing the admission physical. Time Spent With Patient Time: Total time managing care of this patient today _45___ minutes.
[2024-04-24] MEDS: hydrOXYzine HCL 25 MG TABLET PO (13:07)
[2024-04-24 20:00] VITALS: BP 126/63; PULSE 86; RESP 16; TEMP 36.8; O2SAT 100
[2024-04-24] MEDS: chlorproMAZINE HCl 100 MG TABLET PO (21:29)
[2024-04-24] MEDS: risperiDONE 2 MG TABLET PO (21:30)
[2024-04-24] MEDS: QUEtiapine Fumarate 100 MG TABLET PO (21:31)
[2024-04-24] MEDS: MINOXIDIL 5% 1 EACH TOPICAL (22:54)
[2024-04-25 07:40] VITALS: BP 92/54; PULSE 87; RESP 14; TEMP 36.8; O2SAT 97
[2024-04-25] MEDS: risperiDONE 1 MG TABLET PO (08:32)
[2024-04-25] MEDS: lamoTRIgine 100 MG TABLET 200 MG PO ×2 (08:32→14:33)
[2024-04-25] MEDS: Nicotine Polacrilex Lozenge 2 MG LOZENGE BUCCAL ×2 (08:38→19:15)
[2024-04-25] MEDS: clonazePAM 1 MG TABLET PO ×2 (08:38→12:41)
[2024-04-25] MEDS: Nicotine 21 MG PATCH.TD24 TRANSDERMA (08:39)
[2024-04-25] MEDS: Propranolol HCL 20 MG TABLET PO ×2 (09:12→20:53)
[2024-04-25] MEDS: MINOXIDIL 5% 1 EACH TOPICAL ×2 (09:13→20:55)
--- NOTE | 2024-04-25 10:18 | P.PNPSI_ITS ---
Subjective Subjective Date of Service: 04/25/24 Reason For Visit: psychosis Subjective Notes: Conditional Voluntary Interim History: Active on unit, social with peers. attending groups. Pt reports feeling anxious today; pt stated, I notice that when I'm stressed the voices start. I went to my dad's house and was hearing them again . Pt reports he has been unable to sleep; reports thorazine not being helpful. discussed medications; Increased Risperidal to 3mg PO bedtime Increase hydroxyzine to 50mg PO BID Increase Seroquel to 150mg PO bedtime. Start: gabapentin 100mg PO BID DC thorazine Medication Compliance: Yes Side effects from medications: No Attending Groups: Yes Review of Systems Constitutional: Reports as per HPI Eyes: Reports as per HPI Reports as per HPI Cardiovascular: Reports as per HPI Respiratory: Reports as per HPI Gastrointestinal: Reports as per HPI Genitourinary: Reports as per HPI Musculoskeletal: Reports as per HPI Skin/Breast: Reports as per HPI Reports as per HPI Psychiatric: Reports as per HPI Endocrine: Reports as per HPI Hematologic/Lymphatic: Reports as per HPI Allergic/Immunologic: Reports as per HPI Mental Status Exam Mental Status Exam Narrative: Pt is alert and oriented; behavior is cooperative and calm; dressed in casual attire; mood is described as anxious ; eye contact appropriate; Speech is normal rate, volume and not pressured; thought process is organized and goal directed; Thought content is on tx; otherwise pertinent to relevant topics and without any delusional content, paranoid ideations or grandiosity; denies SI/HI/VH/AH. Diagnostics Vital Signs (24Hr): Vital Signs - 24 hr 04/24/24 20:00 04/25/24 07:40 Temperature 98.3 F 98.2 F Pulse Rate 86 87 Respiratory Rate 16 14 Blood Pressure 126/63 92/54 L Pulse Oximetry 100 97 Oxygen Delivery Method Room Air Room Air BMI result Body Mass Index 23.2 Labs 04/23/24 17:25 04/23/24 21:41 Labs: Laboratory Results - last 48 hr 04/23/24 04/23/24 04/24/24 17:25 21:41 07:40 WBC 9.7 RBC 3.92 L Hgb 12.6 L Hct 37.7 L MCV 96.2 MCH 32.1 MCHC 33.4 RDW 12.2 Plt Count 219 MPV 10.0 Immature Gran % (Auto) 0.5 H Neut % (Auto) 67.2 Lymph % (Auto) 24.8 [place] % (Auto) 6.4 Eos % (Auto) 1.0 Baso % (Auto) 0.1 Lymph # (Auto) 2.4 [place] # (Auto) 0.6 Eos # (Auto) 0.1 Baso # (Auto) 0.0 Abs Immat Gran (auto) 0.05 H Absolute Neuts (auto) 6.5 Absolute Nucleated RBC 0.000 Nucleated RBC % (auto) 0.0 Sodium 144 141 Potassium 3.6 4.0 Chloride 106 109 H Carbon Dioxide 32 H 28 Anion Gap 10 L 8 L BUN 16 17 H Creatinine 0.74 0.72 Estim Creat Clear Calc 154.4 158.7 Estimated GFR > 60 > 60 Random Glucose 90 110 Calcium 8.3 L D 7.9 L Total Bilirubin 0.3 0.2 Direct Bilirubin 0.1 AST 23 18 ALT 23 21 Alkaline Phosphatase 73 63 Total Protein 6.2 L 5.2 L Albumin 4.0 3.3 L Triglycerides 33 Cholesterol 139 LDL Cholesterol, Calc 74 HDL Cholesterol 59 Urine Opiates Screen Not Detected Ur Buprenorphine Scrn Not Detected Ur Oxycodone Screen Not Detected Urine Methadone Screen Not Detected Urine Fentanyl Screen Not Detected Ur Barbiturates Screen Not Detected Ur Phencyclidine Scrn Not Detected Ur Amphetamines Screen Not Detected U Benzodiazepines Scrn Not Detected Urine Cocaine Screen Not Detected U Marijuana (THC) Screen POSITIVE H Ethyl Alcohol < 10 Medications Medications Current Medications Acetaminophen (Acetaminophen 325 Mg Tablet) 650 mg PO Q6H PRN PRN Reason: Headache/Pain Mild Scale (1-3) Al Hydroxide/Mg Hydroxide (Magnesium Hydrox/Alum Hydrox 30 Ml Oral.Susp) 30 ml PO Q6H PRN PRN Reason: Heartburn/Nausea Chlorpromazine HCl (Chlorpromazine Hcl 100 Mg Tablet) 100 mg PO BEDTIME RUBI Last Admin: 04/24/24 21:29 Dose: 100 mg Clonazepam (Clonazepam 1 Mg Tablet) 1 mg PO BID PRN PRN Reason: Anxiety Last Admin: 04/25/24 08:38 Dose: 1 mg Hydroxyzine HCl (Hydroxyzine Hcl 25 Mg Tablet) 25 mg PO BID PRN PRN Reason: Anxiety Last Admin: 04/24/24 13:07 Dose: 25 mg Lamotrigine (Lamotrigine 100 Mg Tablet) 200 mg PO BID@0800,1400 COUNT INCLUDES THE [facility] Last Admin: 04/25/24 08:32 Dose: 200 mg Magnesium Hydroxide (Milk Of Magnesia 30 Ml Oral.Susp) 30 ml PO DAILY PRN PRN Reason: Constipation Nicotine (Nicotine 21 Mg Patch.Td24) 21 mg TRANSDERMA DAILY PRN PRN Reason: Nicotine Cravings Last Admin: 04/25/24 08:39 Dose: 21 mg Nicotine Polacrilex (Nicotine Polacrilex Lozenge 2 Mg Lozenge) 2 mg BUCCAL Q2H PRN PRN Reason: Nicotine Cravings Last Admin: 04/25/24 08:38 Dose: 2 mg Pt Own Minoxidil 5% (Topical Solution) 1 each TOPICAL BID COUNT INCLUDES THE [facility] Last Admin: 04/25/24 09:13 Dose: 1 each Propranolol HCl (Propranolol Hcl 20 Mg Tablet) 20 mg PO BID COUNT INCLUDES THE [facility]; Protocol Last Admin: 04/25/24 09:12 Dose: 20 mg Quetiapine Fumarate (Quetiapine Fumarate 100 Mg Tablet) 100 mg PO BEDTIME COUNT INCLUDES THE [facility] Last Admin: 04/24/24 21:31 Dose: 100 mg Risperidone (Risperidone 1 Mg Tablet) 1 mg PO DAILY COUNT INCLUDES THE [facility] Last Admin: 04/25/24 08:32 Dose: 1 mg Risperidone (Risperidone 2 Mg Tablet) 2 mg PO BEDTIME COUNT INCLUDES THE [facility] Last Admin: 04/24/24 21:30 Dose: 2 mg Trazodone HCl (Trazodone Hcl 50 Mg Tablet) 50 mg PO BEDTIME MRX1 PRN PRN Reason: Insomnia Last Admin: 04/23/24 23:32 Dose: 50 mg Allergies Allergies Allergy/AdvReac Type Severity Reaction Status Date / Time No Known Allergies Allergy Verified 04/23/24 17:08 Assessment & Plan Assessment & Plan (1) Bipolar 2 disorder: Status: Acute Code(s): F31.81 - Bipolar II disorder (2) PTSD (post-traumatic stress disorder): Status: Acute Code(s): F43.10 - Post-traumatic stress disorder, unspecified Plan The patient is an adult male with a history of mood disorder, psychosis and PTSD who was readmitted for exacerbation of psychotic symptoms without a clear stressor. He was assessed by crisis and transferred here for continuation of care. Plan 1. Gather collateral information. 2. 15 minute checks. 3. Continue with antipsychotics and mood stabilizers as before. 4. Continue with medical workout. 04/25: Active on unit, social with peers. attending groups. Pt reports feeling anxious today; pt stated, I notice that when I'm stressed the voices start. I went to my dad's house and was hearing them again . Pt reports he has been unable to sleep; reports thorazine not being helpful. discussed medications; Increased Risperidal to 3mg PO bedtime Increase hydroxyzine to 50mg PO BID Increase Seroquel to 150mg PO bedtime. Start: gabapentin 100mg PO BID DC thorazine Patient educated on: diagnosis, medication risk/benefits and therapeutic strategies Reason for continued inpatient stay Substantial Risk for: med/psych decompensation Time Spent With Patient Time: Total time managing care of this patient today __20__ minutes.
[2024-04-25] MEDS: Gabapentin 100 MG CAPSULE PO ×2 (14:33→20:50)
[2024-04-25] MEDS: Acetaminophen 325 MG TABLET 650 MG PO (19:12)
[2024-04-25 20:00] VITALS: BP 131/76; PULSE 100; RESP 18; TEMP 36.6; O2SAT 100
[2024-04-25] MEDS: risperiDONE 3 MG TABLET PO (20:49)
[2024-04-25] MEDS: QUEtiapine Fumarate 50 MG TABLET 150 MG PO (20:49)
[2024-04-26] MEDS: hydrOXYzine HCL 50 MG TABLET PO ×2 (04:21→21:53)
[2024-04-26 07:47] VITALS: BP 111/55; PULSE 77; RESP 16; TEMP 37.1; O2SAT 98
[2024-04-26] MEDS: Propranolol HCL 20 MG TABLET PO ×2 (08:15→20:16)
[2024-04-26] MEDS: risperiDONE 1 MG TABLET PO (08:15)
[2024-04-26] MEDS: Gabapentin 100 MG CAPSULE PO ×2 (08:16→20:16)
[2024-04-26] MEDS: lamoTRIgine 100 MG TABLET 200 MG PO ×2 (08:16→14:08)
[2024-04-26] MEDS: Nicotine 21 MG PATCH.TD24 TRANSDERMA (08:18)
[2024-04-26] MEDS: clonazePAM 1 MG TABLET PO ×2 (08:35→14:10)
[2024-04-26] MEDS: MINOXIDIL 5% 1 EACH TOPICAL ×2 (08:36→20:18)
[2024-04-26] MEDS: Nicotine Polacrilex Lozenge 2 MG LOZENGE BUCCAL ×3 (08:52→20:22)
--- NOTE | 2024-04-26 11:27 | P.PNPSI_ITS ---
Subjective Subjective Date of Service: 04/26/24 Reason For Visit: psychosis Subjective Notes: Conditional Voluntary Interim History: Pt continues to report feeling anxious today; pt stated, I'm worried about where I'm going to go after here. My family and I spoke about going to [facility] but I'm not sure how I'd pay for it . Continues to reports poor sleep; per nursing, slept 6 hours last night. He reports increase in auditory hallucinations d/t increase anxiety. denies SI/HI/VH. Increased Risperidal to 4mg PO bedtime Increase Seroquel to 200mg PO bedtime. DC Risperidal 1mg PO daily Start: Cogentin 1mg PO daily PRN Medication Compliance: Yes Side effects from medications: No Attending Groups: Yes Review of Systems Constitutional: Reports as per HPI Eyes: Reports as per HPI Reports as per HPI Cardiovascular: Reports as per HPI Respiratory: Reports as per HPI Gastrointestinal: Reports as per HPI Genitourinary: Reports as per HPI Musculoskeletal: Reports as per HPI Skin/Breast: Reports as per HPI Reports as per HPI Psychiatric: Reports as per HPI Endocrine: Reports as per HPI Hematologic/Lymphatic: Reports as per HPI Allergic/Immunologic: Reports as per HPI Mental Status Exam Mental Status Exam Narrative: Pt is alert and oriented; behavior is cooperative and calm; dressed in casual attire; mood is described as anxious ; eye contact appropriate; Speech is normal rate, volume and not pressured; thought process is organized and goal directed; Thought content is on tx; denies SI/HI/VH. reports auditory hallucinations today of chatter . Diagnostics Vital Signs (24Hr): Vital Signs - 24 hr 04/25/24 20:00 04/26/24 07:47 Temperature 98 F 98.7 F Pulse Rate 100 77 Respiratory Rate 18 16 Blood Pressure 131/76 111/55 L Pulse Oximetry 100 98 Oxygen Delivery Method Room Air Room Air BMI result Body Mass Index 23.2 Labs 04/23/24 17:25 04/23/24 21:41 Medications Medications Current Medications Acetaminophen (Acetaminophen 325 Mg Tablet) 650 mg PO Q6H PRN PRN Reason: Headache/Pain Mild Scale (1-3) Last Admin: 04/25/24 19:12 Dose: 650 mg Al Hydroxide/Mg Hydroxide (Magnesium Hydrox/Alum Hydrox 30 Ml Oral.Susp) 30 ml PO Q6H PRN PRN Reason: Heartburn/Nausea Clonazepam (Clonazepam 1 Mg Tablet) 1 mg PO BID PRN PRN Reason: Anxiety Last Admin: 04/26/24 08:35 Dose: 1 mg Gabapentin (Gabapentin 100 Mg Capsule) 100 mg PO BID [facility] Last Admin: 04/26/24 08:16 Dose: 100 mg Hydroxyzine HCl (Hydroxyzine Hcl 50 Mg Tablet) 50 mg PO BID PRN PRN Reason: Anxiety Last Admin: 04/26/24 04:21 Dose: 50 mg Lamotrigine (Lamotrigine 100 Mg Tablet) 200 mg PO BID@0800,1400 [facility] Last Admin: 04/26/24 08:16 Dose: 200 mg Magnesium Hydroxide (Milk Of Magnesia 30 Ml Oral.Susp) 30 ml PO DAILY PRN PRN Reason: Constipation Nicotine (Nicotine 21 Mg Patch.Td24) 21 mg TRANSDERMA DAILY PRN PRN Reason: Nicotine Cravings Last Admin: 04/26/24 08:18 Dose: 21 mg Nicotine Polacrilex (Nicotine Polacrilex Lozenge 2 Mg Lozenge) 2 mg BUCCAL Q2H PRN PRN Reason: Nicotine Cravings Last Admin: 04/26/24 08:52 Dose: 2 mg Pt Own Minoxidil 5% (Topical Solution) 1 each TOPICAL BID [facility] Last Admin: 04/26/24 08:36 Dose: 1 each Propranolol HCl (Propranolol Hcl 20 Mg Tablet) 20 mg PO BID [facility]; Protocol Last Admin: 04/26/24 08:15 Dose: 20 mg Quetiapine Fumarate (Quetiapine Fumarate 50 Mg Tablet) 150 mg PO BEDTIME [facility] Last Admin: 04/25/24 20:49 Dose: 150 mg Risperidone (Risperidone 1 Mg Tablet) 1 mg PO DAILY [facility] Last Admin: 04/26/24 08:15 Dose: 1 mg Risperidone (Risperidone 3 Mg Tablet) 3 mg PO BEDTIME [facility] Last Admin: 04/25/24 20:49 Dose: 3 mg Trazodone HCl (Trazodone Hcl 50 Mg Tablet) 50 mg PO BEDTIME MRX1 PRN PRN Reason: Insomnia Last Admin: 04/23/24 23:32 Dose: 50 mg Allergies Allergies Allergy/AdvReac Type Severity Reaction Status Date / Time No Known Allergies Allergy Verified 04/23/24 17:08 Assessment & Plan Assessment & Plan (1) Bipolar 2 disorder: Status: Acute Code(s): F31.81 - Bipolar II disorder (2) PTSD (post-traumatic stress disorder): Status: Acute Code(s): F43.10 - Post-traumatic stress disorder, unspecified Plan The patient is an adult male with a history of mood disorder, psychosis and PTSD who was readmitted for exacerbation of psychotic symptoms without a clear stressor. He was assessed by crisis and transferred here for continuation of care. Plan 1. Gather collateral information. 2. 15 minute checks. 3. Continue with antipsychotics and mood stabilizers as before. 4. Continue with medical workout. 04/25: Active on unit, social with peers. attending groups. Pt reports feeling anxious today; pt stated, I notice that when I'm stressed the voices start. I went to my dad's house and was hearing them again . Pt reports he has been unable to sleep; reports thorazine not being helpful. discussed medications; Increased Risperidal to 3mg PO bedtime Increase hydroxyzine to 50mg PO BID Increase Seroquel to 150mg PO bedtime. Start: gabapentin 100mg PO BID DC thorazine 04/26: Pt continues to report feeling anxious today; pt stated, I'm worried about where I'm going to go after here. My family and I spoke about going to [facility] but I'm not sure how I'd pay for it . Continues to reports poor sleep; per nursing, slept 6 hours last night. He reports increase in auditory hallucinations d/t increase anxiety. denies SI/HI/VH. Increased Risperidal to 4mg PO bedtime Increase Seroquel to 200mg PO bedtime. DC Risperidal 1mg PO daily Start: Cogentin 1mg PO daily PRN Patient educated on: diagnosis, medication risk/benefits and therapeutic strategies Reason for continued inpatient stay Substantial Risk for: med/psych decompensation Time Spent With Patient Time: Total time managing care of this patient today _20___ minutes.
[2024-04-26 19:28] VITALS: BP 129/71; PULSE 80; RESP 16; TEMP 36.6; O2SAT 100
[2024-04-26] MEDS: QUEtiapine Fumarate 200 MG TABLET PO (20:16)
[2024-04-26] MEDS: risperiDONE 2 MG TABLET 4 MG PO (20:16)
[2024-04-26] MEDS: traZODone HCL 50 MG TABLET PO (21:51)
[2024-04-26] MEDS: OLANZapine 5 MG TABLET PO (23:15)
[2024-04-27 07:25] VITALS: BP 114/64; PULSE 86; RESP 16; TEMP 36.8; O2SAT 97
[2024-04-27 08:27] VITALS: BP 114/64; PULSE 86
[2024-04-27] MEDS: Propranolol HCL 20 MG TABLET PO ×2 (08:27→20:16)
[2024-04-27] MEDS: Nicotine Polacrilex Lozenge 2 MG LOZENGE BUCCAL ×4 (08:27→19:07)
[2024-04-27] MEDS: lamoTRIgine 100 MG TABLET 200 MG PO ×2 (08:27→14:07)
[2024-04-27] MEDS: Gabapentin 100 MG CAPSULE PO ×2 (08:27→20:16)
[2024-04-27] MEDS: Nicotine 21 MG PATCH.TD24 TRANSDERMA (08:29)
[2024-04-27] MEDS: clonazePAM 1 MG TABLET PO ×2 (08:31→20:16)
[2024-04-27] MEDS: hydrOXYzine HCL 50 MG TABLET PO (11:56)
--- NOTE | 2024-04-27 12:40 | HO.PSYCHPN ---
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 He plans on thinking of attending [facility] after discharge. Patient reports he is no longer having auditory hallucinations. He reports poor sleep last night d/t his room mate. denies SI/HI/VH/AH. Medication Compliance: Yes Side effects from medications: No Attending Groups: Yes Review of Systems Review of Systems Yes all other systems are reviewed and are negative Constitutional: Reports as per HPI Eyes: Reports as per HPI Reports as per HPI Cardiovascular: Reports as per HPI Respiratory: Reports as per HPI Gastrointestinal: Reports as per HPI Genitourinary: Reports as per HPI Musculoskeletal: Reports as per HPI Skin/Breast: Reports as per HPI Reports as per HPI Psychiatric: Reports as per HPI Endocrine: Reports as per HPI Hematologic/Lymphatic: Reports as per HPI Allergic/Immunologic: Reports as per HPI Mental Status Exam Mental Status Exam Narrative: Pt is alert and oriented; behavior is cooperative and calm; dressed in casual attire; mood is described as anxious ; eye contact appropriate; Speech is normal rate, volume and not pressured; thought process is organized and goal directed; Thought content is on tx; denies SI/HI/VH/AH. Diagnostics Vital Signs (24Hr): Vital Signs - 24 hr 04/26/24 19:28 04/27/24 07:25 04/27/24 08:27 Temperature 97.8 F 98.3 F Pulse Rate 80 86 86 Respiratory Rate 16 16 Blood Pressure 129/71 114/64 114/64 Pulse Oximetry 100 97 Oxygen Delivery Method Room Air Room Air BMI result Body Mass Index 23.2 Labs 04/23/24 17:25 04/23/24 21:41 Medications Medications Current Medications Acetaminophen (Acetaminophen 325 Mg Tablet) 650 mg PO Q6H PRN PRN Reason: Headache/Pain Mild Scale (1-3) Last Admin: 04/25/24 19:12 Dose: 650 mg Al Hydroxide/Mg Hydroxide (Magnesium Hydrox/Alum Hydrox 30 Ml Oral.Susp) 30 ml PO Q6H PRN PRN Reason: Heartburn/Nausea Benztropine Mesylate (Benztropine Mesylate 1 Mg Tablet) 1 mg PO DAILY PRN PRN Reason: Extrapyramidal Effects Clonazepam (Clonazepam 1 Mg Tablet) 1 mg PO BID PRN PRN Reason: Anxiety Last Admin: 04/27/24 08:31 Dose: 1 mg Gabapentin (Gabapentin 100 Mg Capsule) 100 mg PO BID [facility] Last Admin: 04/27/24 08:27 Dose: 100 mg Hydroxyzine HCl (Hydroxyzine Hcl 50 Mg Tablet) 50 mg PO BID PRN PRN Reason: Anxiety Last Admin: 04/27/24 11:56 Dose: 50 mg Lamotrigine (Lamotrigine 100 Mg Tablet) 200 mg PO BID@0800,1400 [facility] Last Admin: 04/27/24 08:27 Dose: 200 mg Magnesium Hydroxide (Milk Of Magnesia 30 Ml Oral.Susp) 30 ml PO DAILY PRN PRN Reason: Constipation Nicotine (Nicotine 21 Mg Patch.Td24) 21 mg TRANSDERMA DAILY PRN PRN Reason: Nicotine Cravings Last Admin: 04/27/24 08:29 Dose: 21 mg Nicotine Polacrilex (Nicotine Polacrilex Lozenge 2 Mg Lozenge) 2 mg BUCCAL Q2H PRN PRN Reason: Nicotine Cravings Last Admin: 04/27/24 11:56 Dose: 2 mg Pt Own Minoxidil 5% (Topical Solution) 1 each TOPICAL BID [facility] Last Admin: 04/26/24 20:18 Dose: 1 each Propranolol HCl (Propranolol Hcl 20 Mg Tablet) 20 mg PO BID [facility]; Protocol Last Admin: 04/27/24 08:27 Dose: 20 mg Quetiapine Fumarate (Quetiapine Fumarate 200 Mg Tablet) 200 mg PO BEDTIME [facility] Last Admin: 04/26/24 20:16 Dose: 200 mg Risperidone (Risperidone 2 Mg Tablet) 4 mg PO BEDTIME [facility] Last Admin: 04/26/24 20:16 Dose: 4 mg Trazodone HCl (Trazodone Hcl 50 Mg Tablet) 50 mg PO BEDTIME MRX1 PRN PRN Reason: Insomnia Last Admin: 04/26/24 21:51 Dose: 50 mg Allergies Allergies Allergy/AdvReac Type Severity Reaction Status Date / Time No Known Allergies Allergy Verified 04/23/24 17:08 Assessment & Plan Assessment & Plan (1) Bipolar 2 disorder: Status: Acute Code(s): F31.81 - Bipolar II disorder (2) PTSD (post-traumatic stress disorder): Status: Acute Code(s): F43.10 - Post-traumatic stress disorder, unspecified Plan The patient is an adult male with a history of mood disorder, psychosis and PTSD who was readmitted for exacerbation of psychotic symptoms without a clear stressor. He was assessed by crisis and transferred here for continuation of care. Plan 1. Gather collateral information. 2. 15 minute checks. 3. Continue with antipsychotics and mood stabilizers as before. 4. Continue with medical workout. 04/25: Active on unit, social with peers. attending groups. Pt reports feeling anxious today; pt stated, I notice that when I'm stressed the voices start. I went to my dad's house and was hearing them again . Pt reports he has been unable to sleep; reports thorazine not being helpful. discussed medications; Increased Risperidal to 3mg PO bedtime Increase hydroxyzine to 50mg PO BID Increase Seroquel to 150mg PO bedtime. Start: gabapentin 100mg PO BID DC thorazine 04/26: Pt continues to report feeling anxious today; pt stated, I'm worried about where I'm going to go after here. My family and I spoke about going to [facility] but I'm not sure how I'd pay for it . Continues to reports poor sleep; per nursing, slept 6 hours last night. He reports increase in auditory hallucinations d/t increase anxiety. denies SI/HI/VH. Increased Risperidal to 4mg PO bedtime Increase Seroquel to 200mg PO bedtime. DC Risperidal 1mg PO daily Start: Cogentin 1mg PO daily PRN 04/27: Pt continues to report feeling anxious today; pt reports he discussed with 7th grade social studies teacher that his insurance does not allow him to go to respite. He plans on thinking of attending [facility] after discharge. Patient reports he is no longer having auditory hallucinations. He reports poor sleep last night d/t his room mate. denies SI/HI/VH/AH. Patient educated on: diagnosis, medication risk/benefits and therapeutic strategies Reason for continued inpatient stay Substantial Risk for: med/psych decompensation Time Spent With Patient Time: Total time managing care of this patient today _20___ minutes.
[2024-04-27] MEDS: Acetaminophen 325 MG TABLET 650 MG PO ×2 (13:26→20:16)
[2024-04-27 19:40] VITALS: BP 132/75; PULSE 106; RESP 16; TEMP 37.4; O2SAT 100
[2024-04-27] MEDS: risperiDONE 2 MG TABLET 4 MG PO (20:16)
[2024-04-27] MEDS: QUEtiapine Fumarate 200 MG TABLET PO (20:16)
[2024-04-27] MEDS: MINOXIDIL 5% 1 EACH TOPICAL (20:19)
[2024-04-27] MEDS: OLANZapine 5 MG TABLET PO (20:51)
[2024-04-28 07:00] VITALS: BMI 22.9
[2024-04-28 07:15] VITALS: BP 115/62; PULSE 99; RESP 16; TEMP 37.4; O2SAT 94
[2024-04-28] MEDS: lamoTRIgine 100 MG TABLET 200 MG PO ×2 (08:50→14:05)
[2024-04-28 08:51] VITALS: BP 115/62; PULSE 99
[2024-04-28] MEDS: Gabapentin 100 MG CAPSULE PO ×2 (08:51→19:51)
[2024-04-28] MEDS: Nicotine 21 MG PATCH.TD24 TRANSDERMA (08:51)
[2024-04-28] MEDS: Propranolol HCL 20 MG TABLET PO ×2 (08:51→19:53)
[2024-04-28] MEDS: clonazePAM 1 MG TABLET PO ×2 (08:56→17:34)
[2024-04-28] MEDS: Acetaminophen 325 MG TABLET 650 MG PO (08:56)
[2024-04-28] MEDS: Nicotine Polacrilex Lozenge 2 MG LOZENGE BUCCAL ×3 (08:56→19:51)
[2024-04-28] MEDS: MINOXIDIL 5% 1 EACH TOPICAL ×2 (08:56→19:54)
--- NOTE | 2024-04-28 14:48 | HO.PSYCHPN ---
Subjective Subjective Date of Service: 04/28/24 Reason For Visit: psychosis Subjective Notes: Conditional Voluntary Interim History: Pt continues to report feeling anxious today; pt reports he plans on discharging Thursday and staying at a hotel room my dad is getting for me . Pt reports he does not plan on returning to his father's house or work since those are the places my voices get worse . denies SI/HI/VH/AH. Medication Compliance: Yes Side effects from medications: No Review of Systems Review of Systems Yes all other systems are reviewed and are negative Constitutional: Reports as per HPI Eyes: Reports as per HPI Reports as per HPI Cardiovascular: Reports as per HPI Respiratory: Reports as per HPI Gastrointestinal: Reports as per HPI Genitourinary: Reports as per HPI Musculoskeletal: Reports as per HPI Skin/Breast: Reports as per HPI Reports as per HPI Psychiatric: Reports as per HPI Endocrine: Reports as per HPI Hematologic/Lymphatic: Reports as per HPI Allergic/Immunologic: Reports as per HPI Mental Status Exam Mental Status Exam Narrative: Pt is alert and oriented; behavior is cooperative and calm; dressed in casual attire; mood is described as anxious ; eye contact appropriate; Speech is normal rate, volume and not pressured; thought process is organized and goal directed; Thought content is on tx; denies SI/HI/VH/AH. Diagnostics Vital Signs (24Hr): Vital Signs - 24 hr 04/27/24 19:40 04/28/24 07:15 04/28/24 08:51 Temperature 99.4 F 99.3 F Pulse Rate 106 H 99 99 Respiratory Rate 16 16 Blood Pressure 132/75 115/62 115/62 Pulse Oximetry 100 94 Oxygen Delivery Method Room Air Room Air BMI result Body Mass Index 22.9 Labs 04/23/24 17:25 04/23/24 21:41 Medications Medications Current Medications Acetaminophen (Acetaminophen 325 Mg Tablet) 650 mg PO Q6H PRN PRN Reason: Headache/Pain Mild Scale (1-3) Last Admin: 04/28/24 08:56 Dose: 650 mg Al Hydroxide/Mg Hydroxide (Magnesium Hydrox/Alum Hydrox 30 Ml Oral.Susp) 30 ml PO Q6H PRN PRN Reason: Heartburn/Nausea Benztropine Mesylate (Benztropine Mesylate 1 Mg Tablet) 1 mg PO DAILY PRN PRN Reason: Extrapyramidal Effects Clonazepam (Clonazepam 1 Mg Tablet) 1 mg PO BID PRN PRN Reason: Anxiety Last Admin: 04/28/24 08:56 Dose: 1 mg Gabapentin (Gabapentin 100 Mg Capsule) 100 mg PO BID [facility] Last Admin: 04/28/24 08:51 Dose: 100 mg Hydroxyzine HCl (Hydroxyzine Hcl 50 Mg Tablet) 50 mg PO BID PRN PRN Reason: Anxiety Last Admin: 04/27/24 11:56 Dose: 50 mg Lamotrigine (Lamotrigine 100 Mg Tablet) 200 mg PO BID@0800,1400 [facility] Last Admin: 04/28/24 14:05 Dose: 200 mg Magnesium Hydroxide (Milk Of Magnesia 30 Ml Oral.Susp) 30 ml PO DAILY PRN PRN Reason: Constipation Nicotine (Nicotine 21 Mg Patch.Td24) 21 mg TRANSDERMA DAILY PRN PRN Reason: Nicotine Cravings Last Admin: 04/28/24 08:51 Dose: 21 mg Nicotine Polacrilex (Nicotine Polacrilex Lozenge 2 Mg Lozenge) 2 mg BUCCAL Q2H PRN PRN Reason: Nicotine Cravings Last Admin: 04/28/24 14:06 Dose: 2 mg Pt Own Minoxidil 5% (Topical Solution) 1 each TOPICAL BID [facility] Last Admin: 04/28/24 08:56 Dose: 1 each Olanzapine (Olanzapine 5 Mg Tablet) 5 mg PO BEDTIME PRN PRN Reason: insomnia/anxiety Last Admin: 04/27/24 20:51 Dose: 5 mg Propranolol HCl (Propranolol Hcl 20 Mg Tablet) 20 mg PO BID [facility]; Protocol Last Admin: 04/28/24 08:51 Dose: 20 mg Quetiapine Fumarate (Quetiapine Fumarate 200 Mg Tablet) 200 mg PO BEDTIME [facility] Last Admin: 04/27/24 20:16 Dose: 200 mg Risperidone (Risperidone 2 Mg Tablet) 4 mg PO BEDTIME [facility] Last Admin: 04/27/24 20:16 Dose: 4 mg Trazodone HCl (Trazodone Hcl 50 Mg Tablet) 50 mg PO BEDTIME MRX1 PRN PRN Reason: Insomnia Last Admin: 04/26/24 21:51 Dose: 50 mg Allergies Allergies Allergy/AdvReac Type Severity Reaction Status Date / Time No Known Allergies Allergy Verified 04/23/24 17:08 Assessment & Plan Assessment & Plan (1) Bipolar 2 disorder: Status: Acute Code(s): F31.81 - Bipolar II disorder (2) PTSD (post-traumatic stress disorder): Status: Acute Code(s): F43.10 - Post-traumatic stress disorder, unspecified Plan The patient is an adult male with a history of mood disorder, psychosis and PTSD who was readmitted for exacerbation of psychotic symptoms without a clear stressor. He was assessed by crisis and transferred here for continuation of care. Plan 1. Gather collateral information. 2. 15 minute checks. 3. Continue with antipsychotics and mood stabilizers as before. 4. Continue with medical workout. 04/25: Active on unit, social with peers. attending groups. Pt reports feeling anxious today; pt stated, I notice that when I'm stressed the voices start. I went to my dad's house and was hearing them again . Pt reports he has been unable to sleep; reports thorazine not being helpful. discussed medications; Increased Risperidal to 3mg PO bedtime Increase hydroxyzine to 50mg PO BID Increase Seroquel to 150mg PO bedtime. Start: gabapentin 100mg PO BID DC thorazine 04/26: Pt continues to report feeling anxious today; pt stated, I'm worried about where I'm going to go after here. My family and I spoke about going to [facility] but I'm not sure how I'd pay for it . Continues to reports poor sleep; per nursing, slept 6 hours last night. He reports increase in auditory hallucinations d/t increase anxiety. denies SI/HI/VH. Increased Risperidal to 4mg PO bedtime Increase Seroquel to 200mg PO bedtime. DC Risperidal 1mg PO daily Start: Cogentin 1mg PO daily PRN 04/27: Pt continues to report feeling anxious today; pt reports he discussed with social insurance administrator that his insurance does not allow him to go to respite. He plans on thinking of attending [facility] after discharge. Patient reports he is no longer having auditory hallucinations. He reports poor sleep last night d/t his room mate. denies SI/HI/VH/AH. 04/28: Pt continues to report feeling anxious today; pt reports he plans on discharging Thursday and staying at a hotel room my dad is getting for me . Pt reports he does not plan on returning to his father's house or work since those are the places my voices get worse . denies SI/HI/VH/AH. He reports sleeping well last night. Patient educated on: diagnosis, medication risk/benefits and therapeutic strategies Reason for continued inpatient stay Substantial Risk for: med/psych decompensation Time Spent With Patient Time: Total time managing care of this patient today _20___ minutes.
[2024-04-28] MEDS: QUEtiapine Fumarate 200 MG TABLET PO (19:51)
[2024-04-28] MEDS: OLANZapine 5 MG TABLET PO (19:51)
[2024-04-28] MEDS: risperiDONE 2 MG TABLET 4 MG PO (19:52)
[2024-04-28 19:53] VITALS: BP 135/80
[2024-04-28 20:00] VITALS: BP 135/80; PULSE 86; RESP 16; TEMP 36.9; O2SAT 100
[2024-04-28] MEDS: hydrOXYzine HCL 50 MG TABLET PO (21:44)
[2024-04-29 07:25] VITALS: BP 113/62; PULSE 98; RESP 14; TEMP 37.4; O2SAT 96
[2024-04-29] MEDS: Gabapentin 100 MG CAPSULE PO ×2 (09:04→21:02)
[2024-04-29] MEDS: lamoTRIgine 100 MG TABLET 200 MG PO ×2 (09:05→14:32)
[2024-04-29 09:07] VITALS: BP 120/71; PULSE 99; RESP 16; O2SAT 96
--- NOTE | 2024-04-29 09:07 | P.PNPSI_ITS ---
Subjective Subjective Date of Service: 04/29/24 Reason For Visit: psychosis Subjective Notes: Conditional Voluntary Interim History: Active on unit, social with peers. Reports feeling overall not bad ; states he slept well last night. denies SI/HI/VH/AH. denies any issues at this time. plan for discharge on Thursday if continues to improve. Medication Compliance: Yes Side effects from medications: No Attending Groups: Yes Review of Systems Constitutional: Reports as per HPI Eyes: Reports as per HPI Reports as per HPI Cardiovascular: Reports as per HPI Respiratory: Reports as per HPI Gastrointestinal: Reports as per HPI Genitourinary: Reports as per HPI Musculoskeletal: Reports as per HPI Skin/Breast: Reports as per HPI Reports as per HPI Psychiatric: Reports as per HPI Endocrine: Reports as per HPI Hematologic/Lymphatic: Reports as per HPI Allergic/Immunologic: Reports as per HPI Mental Status Exam Mental Status Exam Narrative: Pt is alert and oriented; behavior is cooperative and calm; dressed in casual attire; mood is described as not bad ; eye contact appropriate; Speech is normal rate, volume and not pressured; thought process is organized and goal directed; Thought content is on discharge; denies SI/HI/VH/AH. Diagnostics Vital Signs (24Hr): Vital Signs - 24 hr 04/28/24 19:53 04/28/24 20:00 04/29/24 07:25 Temperature 98.5 F 99.3 F Pulse Rate 86 98 Respiratory Rate 16 14 Blood Pressure 135/80 135/80 113/62 Pulse Oximetry 100 96 Oxygen Delivery Method Room Air Room Air BMI result Body Mass Index 22.9 Labs 04/23/24 17:25 04/23/24 21:41 Medications Medications Current Medications Acetaminophen (Acetaminophen 325 Mg Tablet) 650 mg PO Q6H PRN PRN Reason: Headache/Pain Mild Scale (1-3) Last Admin: 04/28/24 08:56 Dose: 650 mg Al Hydroxide/Mg Hydroxide (Magnesium Hydrox/Alum Hydrox 30 Ml Oral.Susp) 30 ml PO Q6H PRN PRN Reason: Heartburn/Nausea Benztropine Mesylate (Benztropine Mesylate 1 Mg Tablet) 1 mg PO DAILY PRN PRN Reason: Extrapyramidal Effects Clonazepam (Clonazepam 1 Mg Tablet) 1 mg PO BID PRN PRN Reason: Anxiety Last Admin: 04/28/24 17:34 Dose: 1 mg Gabapentin (Gabapentin 100 Mg Capsule) 100 mg PO BID [facility] Last Admin: 04/28/24 19:51 Dose: 100 mg Hydroxyzine HCl (Hydroxyzine Hcl 50 Mg Tablet) 50 mg PO BID PRN PRN Reason: Anxiety Last Admin: 04/28/24 21:44 Dose: 50 mg Lamotrigine (Lamotrigine 100 Mg Tablet) 200 mg PO BID@0800,1400 [facility] Last Admin: 04/28/24 14:05 Dose: 200 mg Magnesium Hydroxide (Milk Of Magnesia 30 Ml Oral.Susp) 30 ml PO DAILY PRN PRN Reason: Constipation Nicotine (Nicotine 21 Mg Patch.Td24) 21 mg TRANSDERMA DAILY PRN PRN Reason: Nicotine Cravings Last Admin: 04/28/24 08:51 Dose: 21 mg Nicotine Polacrilex (Nicotine Polacrilex Lozenge 2 Mg Lozenge) 2 mg BUCCAL Q2H PRN PRN Reason: Nicotine Cravings Last Admin: 04/28/24 19:51 Dose: 2 mg Pt Own Minoxidil 5% (Topical Solution) 1 each TOPICAL BID [facility] Last Admin: 04/28/24 19:54 Dose: 1 each Olanzapine (Olanzapine 5 Mg Tablet) 5 mg PO BEDTIME PRN PRN Reason: insomnia/anxiety Last Admin: 04/28/24 19:51 Dose: 5 mg Propranolol HCl (Propranolol Hcl 20 Mg Tablet) 20 mg PO BID [facility]; Protocol Last Admin: 04/28/24 19:53 Dose: 20 mg Quetiapine Fumarate (Quetiapine Fumarate 200 Mg Tablet) 200 mg PO BEDTIME [facility] Last Admin: 04/28/24 19:51 Dose: 200 mg Risperidone (Risperidone 2 Mg Tablet) 4 mg PO BEDTIME [facility] Last Admin: 04/28/24 19:52 Dose: 4 mg Trazodone HCl (Trazodone Hcl 50 Mg Tablet) 50 mg PO BEDTIME MRX1 PRN PRN Reason: Insomnia Last Admin: 04/26/24 21:51 Dose: 50 mg Allergies Allergies Allergy/AdvReac Type Severity Reaction Status Date / Time No Known Allergies Allergy Verified 04/23/24 17:08 Assessment & Plan Assessment & Plan (1) Bipolar 2 disorder: Status: Acute Code(s): F31.81 - Bipolar II disorder (2) PTSD (post-traumatic stress disorder): Status: Acute Code(s): F43.10 - Post-traumatic stress disorder, unspecified Plan The patient is an adult male with a history of mood disorder, psychosis and PTSD who was readmitted for exacerbation of psychotic symptoms without a clear stressor. He was assessed by crisis and transferred here for continuation of care. Plan 1. Gather collateral information. 2. 15 minute checks. 3. Continue with antipsychotics and mood stabilizers as before. 4. Continue with medical workout. 04/25: Active on unit, social with peers. attending groups. Pt reports feeling anxious today; pt stated, I notice that when I'm stressed the voices start. I went to my dad's house and was hearing them again . Pt reports he has been unable to sleep; reports thorazine not being helpful. discussed medications; Increased Risperidal to 3mg PO bedtime Increase hydroxyzine to 50mg PO BID Increase Seroquel to 150mg PO bedtime. Start: gabapentin 100mg PO BID DC thorazine 04/26: Pt continues to report feeling anxious today; pt stated, I'm worried about where I'm going to go after here. My family and I spoke about going to [facility] but I'm not sure how I'd pay for it . Continues to reports poor sleep; per nursing, slept 6 hours last night. He reports increase in auditory hallucinations d/t increase anxiety. denies SI/HI/VH. Increased Risperidal to 4mg PO bedtime Increase Seroquel to 200mg PO bedtime. DC Risperidal 1mg PO daily Start: Cogentin 1mg PO daily PRN 04/27: Pt continues to report feeling anxious today; pt reports he discussed with social work administrator that his insurance does not allow him to go to respite. He plans on thinking of attending [facility] after discharge. Patient reports he is no longer having auditory hallucinations. He reports poor sleep last night d/t his room mate. denies SI/HI/VH/AH. 04/28: Pt continues to report feeling anxious today; pt reports he plans on discharging Thursday and staying at a hotel room my dad is getting for me . Pt reports he does not plan on returning to his father's house or work since those are the places my voices get worse . denies SI/HI/VH/AH. He reports sleeping well last night. 04/29: Active on unit, social with peers. Reports feeling overall not bad ; states he slept well last night. denies SI/HI/VH/AH. denies any issues at this time. plan for discharge on Thursday if continues to improve. continue current tx plan. Patient educated on: diagnosis, medication risk/benefits and therapeutic strategies Reason for continued inpatient stay Substantial Risk for: med/psych decompensation Time Spent With Patient Time: Total time managing care of this patient today _20___ minutes.
[2024-04-29] MEDS: Propranolol HCL 20 MG TABLET PO ×2 (09:09→21:03)
[2024-04-29] MEDS: Nicotine 21 MG PATCH.TD24 TRANSDERMA (09:11)
[2024-04-29] MEDS: clonazePAM 1 MG TABLET PO ×3 (09:30→21:02)
[2024-04-29] MEDS: MINOXIDIL 5% 1 EACH TOPICAL ×2 (09:30→21:02)
[2024-04-29] MEDS: Nicotine Polacrilex Lozenge 2 MG LOZENGE BUCCAL (09:31)
[2024-04-29 10:32] VITALS: TEMP 36.6
[2024-04-29 20:00] VITALS: BP 122/77; PULSE 95; RESP 16; TEMP 37.1; O2SAT 100
[2024-04-29] MEDS: risperiDONE 2 MG TABLET 4 MG PO (21:02)
[2024-04-29 21:03] VITALS: BP 122/77
[2024-04-29] MEDS: hydrOXYzine HCL 50 MG TABLET PO (21:03)
[2024-04-29] MEDS: QUEtiapine Fumarate 200 MG TABLET PO (21:04)
[2024-04-30 07:50] VITALS: BP 114/68; PULSE 88; RESP 14; TEMP 36.9; O2SAT 96
[2024-04-30 08:56] VITALS: BP 114/68; PULSE 88
[2024-04-30] MEDS: Gabapentin 100 MG CAPSULE PO ×2 (08:56→20:23)
[2024-04-30] MEDS: Propranolol HCL 20 MG TABLET PO ×2 (08:56→20:23)
[2024-04-30] MEDS: lamoTRIgine 100 MG TABLET 200 MG PO ×2 (08:57→14:02)
[2024-04-30] MEDS: MINOXIDIL 5% 1 EACH TOPICAL ×2 (08:57→20:31)
[2024-04-30] MEDS: clonazePAM 1 MG TABLET PO ×2 (08:59→20:22)
[2024-04-30] MEDS: Nicotine Polacrilex Lozenge 2 MG LOZENGE BUCCAL ×3 (08:59→17:33)
[2024-04-30] MEDS: Nicotine 21 MG PATCH.TD24 TRANSDERMA (09:00)
[2024-04-30] MEDS: Acetaminophen 325 MG TABLET 650 MG PO (09:02)
--- NOTE | 2024-04-30 10:29 | P.PNPSI_ITS ---
Subjective Subjective Date of Service: 04/30/24 Reason For Visit: psychosis Interim History: Reports definite improvement in mood and stabilized compared to admission. Having a visit with his father. Slept well last night. denies SI/HI/VH/AH. denies any issues at this time. plan for discharge on Thursday if continues to improve. Review of Systems Review of Systems Constitutional : No Fever, No Chills ENT/Mouth : No Ear Pain, No Nasal Congestion, No sore throat Eyes: No Eye Pain, No Swelling, No Redness Cardiovascular : No Chest Pain, No SOB Respiratory : No Cough, No Sputum, No Dyspnea Gastrointestinal : No Nausea, No Vomiting, No Diarrhea, No Hematochezia, No Melena Genitourinary : No Dysuria, No Urinary Frequency, No Hematuria Musculoskeletal : No Myalgias Skin : No Skin Lesions, No rash Neuro : No Weakness, No Numbness, No Paresthesias, No Dizziness, No Headache Psych : positive Anxiety, positive Depression, no SI/HI All other systems reviewed and are negative Yes all other systems are reviewed and are negative Constitutional: Reports as per HPI Eyes: Reports as per HPI Reports as per HPI Cardiovascular: Reports as per HPI Respiratory: Reports as per HPI Gastrointestinal: Reports as per HPI Genitourinary: Reports as per HPI Musculoskeletal: Reports as per HPI Skin/Breast: Reports as per HPI Reports as per HPI Psychiatric: Reports as per HPI Endocrine: Reports as per HPI Hematologic/Lymphatic: Reports as per HPI Allergic/Immunologic: Reports as per HPI Mental Status Exam Mental Status Exam Narrative: Pt is alert and oriented; behavior is cooperative and calm; dressed in casual attire; mood is described as not bad ; eye contact appropriate; Speech is normal rate, volume and not pressured; thought process is organized and goal directed; Thought content is on discharge; denies SI/HI/VH/AH. Patient Appearance: Well Grooomed and Appropriate Patient Orientation: Person and Situation Level of Consciousness: Awake and Appropriate Patient Behavior: Guarded and Passive Mood Description: Withdrawn Affect Description: Constricted Patient Cognition Impaired: Yes Ability to Follow Directions: Good Speech Pattern: Clear Diagnostics Vital Signs (24Hr): Vital Signs - 24 hr 04/29/24 10:32 04/29/24 20:00 04/29/24 21:03 Temperature 97.9 F 98.7 F Pulse Rate 95 Respiratory Rate 16 Blood Pressure 122/77 122/77 Pulse Oximetry 100 Oxygen Delivery Method Room Air 04/30/24 07:50 04/30/24 08:56 Temperature 98.4 F Pulse Rate 88 88 Respiratory Rate 14 Blood Pressure 114/68 114/68 Pulse Oximetry 96 Oxygen Delivery Method Room Air BMI result Body Mass Index 22.9 Labs 04/23/24 17:25 04/23/24 21:41 Medications Medications Current Medications Acetaminophen (Acetaminophen 325 Mg Tablet) 650 mg PO Q6H PRN PRN Reason: Headache/Pain Mild Scale (1-3) Last Admin: 04/30/24 09:02 Dose: 650 mg Al Hydroxide/Mg Hydroxide (Magnesium Hydrox/Alum Hydrox 30 Ml Oral.Susp) 30 ml PO Q6H PRN PRN Reason: Heartburn/Nausea Benztropine Mesylate (Benztropine Mesylate 1 Mg Tablet) 1 mg PO DAILY PRN PRN Reason: Extrapyramidal Effects Clonazepam (Clonazepam 1 Mg Tablet) 1 mg PO BID PRN PRN Reason: Anxiety Last Admin: 04/30/24 08:59 Dose: 1 mg Gabapentin (Gabapentin 100 Mg Capsule) 100 mg PO BID [facility] Last Admin: 04/30/24 08:56 Dose: 100 mg Hydroxyzine HCl (Hydroxyzine Hcl 50 Mg Tablet) 50 mg PO BID PRN PRN Reason: Anxiety Last Admin: 04/29/24 21:03 Dose: 50 mg Lamotrigine (Lamotrigine 100 Mg Tablet) 200 mg PO BID@0800,1400 [facility] Last Admin: 04/30/24 08:57 Dose: 200 mg Magnesium Hydroxide (Milk Of Magnesia 30 Ml Oral.Susp) 30 ml PO DAILY PRN PRN Reason: Constipation Nicotine (Nicotine 21 Mg Patch.Td24) 21 mg TRANSDERMA DAILY PRN PRN Reason: Nicotine Cravings Last Admin: 04/30/24 09:00 Dose: 21 mg Nicotine Polacrilex (Nicotine Polacrilex Lozenge 2 Mg Lozenge) 2 mg BUCCAL Q2H PRN PRN Reason: Nicotine Cravings Last Admin: 04/30/24 08:59 Dose: 2 mg Pt Own Minoxidil 5% (Topical Solution) 1 each TOPICAL BID [facility] Last Admin: 04/30/24 08:57 Dose: 1 each Olanzapine (Olanzapine 5 Mg Tablet) 5 mg PO BEDTIME PRN PRN Reason: insomnia/anxiety Last Admin: 04/28/24 19:51 Dose: 5 mg Propranolol HCl (Propranolol Hcl 20 Mg Tablet) 20 mg PO BID [facility]; Protocol Last Admin: 04/30/24 08:56 Dose: 20 mg Quetiapine Fumarate (Quetiapine Fumarate 200 Mg Tablet) 200 mg PO BEDTIME [facility] Last Admin: 04/29/24 21:04 Dose: 200 mg Risperidone (Risperidone 2 Mg Tablet) 4 mg PO BEDTIME [facility] Last Admin: 04/29/24 21:02 Dose: 4 mg Trazodone HCl (Trazodone Hcl 50 Mg Tablet) 50 mg PO BEDTIME MRX1 PRN PRN Reason: Insomnia Last Admin: 04/26/24 21:51 Dose: 50 mg Allergies Allergies Allergy/AdvReac Type Severity Reaction Status Date / Time No Known Allergies Allergy Verified 04/23/24 17:08 Assessment & Plan Assessment & Plan (1) Bipolar 2 disorder: Status: Acute Code(s): F31.81 - Bipolar II disorder (2) PTSD (post-traumatic stress disorder): Status: Acute Code(s): F43.10 - Post-traumatic stress disorder, unspecified Plan The patient is an adult male with a history of mood disorder, psychosis and PTSD who was readmitted for exacerbation of psychotic symptoms without a clear stressor. He was assessed by crisis and transferred here for continuation of care. Plan 1. Gather collateral information. 2. 15 minute checks. 3. Continue with antipsychotics and mood stabilizers as before. 4. Continue with medical workout. 04/25: Active on unit, social with peers. attending groups. Pt reports feeling anxious today; pt stated, I notice that when I'm stressed the voices start. I went to my dad's house and was hearing them again . Pt reports he has been unable to sleep; reports thorazine not being helpful. discussed medications; Increased Risperidal to 3mg PO bedtime Increase hydroxyzine to 50mg PO BID Increase Seroquel to 150mg PO bedtime. Start: gabapentin 100mg PO BID DC thorazine 04/26: Pt continues to report feeling anxious today; pt stated, I'm worried about where I'm going to go after here. My family and I spoke about going to [facility] but I'm not sure how I'd pay for it . Continues to reports poor sleep; per nursing, slept 6 hours last night. He reports increase in auditory hallucinations d/t increase anxiety. denies SI/HI/VH. Increased Risperidal to 4mg PO bedtime Increase Seroquel to 200mg PO bedtime. DC Risperidal 1mg PO daily Start: Cogentin 1mg PO daily PRN 04/27: Pt continues to report feeling anxious today; pt reports he discussed with social worker delinquency prevention that his insurance does not allow him to go to respite. He plans on thinking of attending [facility] after discharge. Patient reports he is no longer having auditory hallucinations. He reports poor sleep last night d/t his room mate. denies SI/HI/VH/AH. 04/28: Pt continues to report feeling anxious today; pt reports he plans on discharging Thursday and staying at a hotel room my dad is getting for me . Pt reports he does not plan on returning to his father's house or work since those are the places my voices get worse . denies SI/HI/VH/AH. He reports sleeping well last night. 04/29: Active on unit, social with peers. Reports feeling overall not bad ; states he slept well last night. denies SI/HI/VH/AH. denies any issues at this time. plan for discharge on Thursday if continues to improve. continue current tx plan. 04/30 continue current management and treatment plan. Reason for continued inpatient stay Substantial Risk for: inability to function and rapid decompensation Time Spent With Patient Time: Total time managing care of this patient today ____ minutes.
[2024-04-30] MEDS: hydrOXYzine HCL 50 MG TABLET PO ×2 (10:42→17:34)
[2024-04-30 20:00] VITALS: BP 124/71; PULSE 73; RESP 16; TEMP 36.4; O2SAT 99
[2024-04-30] MEDS: risperiDONE 2 MG TABLET 4 MG PO (20:20)
[2024-04-30] MEDS: OLANZapine 5 MG TABLET PO (20:22)
[2024-04-30] MEDS: QUEtiapine Fumarate 200 MG TABLET PO (20:48)
[2024-05-01] MEDS: Nicotine Polacrilex Lozenge 2 MG LOZENGE BUCCAL ×2 (04:00→08:42)
[2024-05-01] MEDS: hydrOXYzine HCL 50 MG TABLET PO ×3 (04:01→20:36)
[2024-05-01 07:10] VITALS: BP 114/65; PULSE 81; RESP 16; TEMP 36.4; O2SAT 96
[2024-05-01 08:32] VITALS: BP 114/85; PULSE 81
[2024-05-01] MEDS: Propranolol HCL 20 MG TABLET PO ×2 (08:32→20:35)
[2024-05-01] MEDS: Gabapentin 100 MG CAPSULE PO ×2 (08:32→20:35)
[2024-05-01] MEDS: lamoTRIgine 100 MG TABLET 200 MG PO ×2 (08:32→14:09)
[2024-05-01] MEDS: clonazePAM 1 MG TABLET PO ×2 (08:33→18:39)
[2024-05-01] MEDS: Nicotine 21 MG PATCH.TD24 TRANSDERMA (08:44)
[2024-05-01] MEDS: MINOXIDIL 5% 1 EACH TOPICAL ×2 (08:46→21:17)
--- NOTE | 2024-05-01 10:00 | HO.PSYCHPN ---
Subjective Subjective Date of Service: 05/01/24 Reason For Visit: psychosis Interim History: Reports definite improvement in mood doing well. Had a visit with his father. Looking forward to [place] tomorrow. Says would like to be discharged between 2-3 PM when his father can pick him up. Slept well last night. denies SI/HI/VH/AH. Review of Systems Review of Systems Constitutional : No Fever, No Chills ENT/Mouth : No Ear Pain, No Nasal Congestion, No sore throat Eyes: No Eye Pain, No Swelling, No Redness Cardiovascular : No Chest Pain, No SOB Respiratory : No Cough, No Sputum, No Dyspnea Gastrointestinal : No Nausea, No Vomiting, No Diarrhea, No Hematochezia, No Melena Genitourinary : No Dysuria, No Urinary Frequency, No Hematuria Musculoskeletal : No Myalgias Skin : No Skin Lesions, No rash Neuro : No Weakness, No Numbness, No Paresthesias, No Dizziness, No Headache Psych : positive Anxiety, positive Depression, no SI/HI All other systems reviewed and are negative Yes all other systems are reviewed and are negative Constitutional: Reports as per HPI Eyes: Reports as per HPI Reports as per HPI Cardiovascular: Reports as per HPI Respiratory: Reports as per HPI Gastrointestinal: Reports as per HPI Genitourinary: Reports as per HPI Musculoskeletal: Reports as per HPI Skin/Breast: Reports as per HPI Reports as per HPI Psychiatric: Reports as per HPI Endocrine: Reports as per HPI Hematologic/Lymphatic: Reports as per HPI Allergic/Immunologic: Reports as per HPI Mental Status Exam Mental Status Exam Narrative: Pt is alert and oriented; behavior is cooperative and calm; dressed in casual attire; mood is described as not bad ; eye contact appropriate; Speech is normal rate, volume and not pressured; thought process is organized and goal directed; Thought content is on discharge; denies SI/HI/VH/AH. Patient Appearance: Well Grooomed and Appropriate Patient Orientation: Person and Situation Level of Consciousness: Awake and Appropriate Patient Behavior: Guarded and Passive Mood Description: Withdrawn Affect Description: Constricted Patient Cognition Impaired: Yes Ability to Follow Directions: Good Speech Pattern: Clear Diagnostics Vital Signs (24Hr): Vital Signs - 24 hr 04/30/24 20:00 05/01/24 07:10 05/01/24 08:32 Temperature 97.6 F 97.6 F Pulse Rate 73 81 81 Respiratory Rate 16 16 Blood Pressure 124/71 114/65 114/85 Pulse Oximetry 99 96 Oxygen Delivery Method Room Air Room Air BMI result Body Mass Index 22.9 Labs 04/23/24 17:25 04/23/24 21:41 Medications Medications Current Medications Acetaminophen (Acetaminophen 325 Mg Tablet) 650 mg PO Q6H PRN PRN Reason: Headache/Pain Mild Scale (1-3) Last Admin: 04/30/24 09:02 Dose: 650 mg Al Hydroxide/Mg Hydroxide (Magnesium Hydrox/Alum Hydrox 30 Ml Oral.Susp) 30 ml PO Q6H PRN PRN Reason: Heartburn/Nausea Benztropine Mesylate (Benztropine Mesylate 1 Mg Tablet) 1 mg PO DAILY PRN PRN Reason: Extrapyramidal Effects Clonazepam (Clonazepam 1 Mg Tablet) 1 mg PO BID PRN PRN Reason: Anxiety Last Admin: 05/01/24 08:33 Dose: 1 mg Gabapentin (Gabapentin 100 Mg Capsule) 100 mg PO BID [facility] Last Admin: 05/01/24 08:32 Dose: 100 mg Hydroxyzine HCl (Hydroxyzine Hcl 50 Mg Tablet) 50 mg PO BID PRN PRN Reason: Anxiety Last Admin: 05/01/24 04:01 Dose: 50 mg Lamotrigine (Lamotrigine 100 Mg Tablet) 200 mg PO BID@0800,1400 [facility] Last Admin: 05/01/24 08:32 Dose: 200 mg Magnesium Hydroxide (Milk Of Magnesia 30 Ml Oral.Susp) 30 ml PO DAILY PRN PRN Reason: Constipation Nicotine (Nicotine 21 Mg Patch.Td24) 21 mg TRANSDERMA DAILY PRN PRN Reason: Nicotine Cravings Last Admin: 05/01/24 08:44 Dose: 21 mg Nicotine Polacrilex (Nicotine Polacrilex Lozenge 4 Mg Lozenge) 4 mg BUCCAL Q2H PRN PRN Reason: Nicotine Cravings Pt Own Minoxidil 5% (Topical Solution) 1 each TOPICAL BID [facility] Last Admin: 05/01/24 08:46 Dose: 1 each Olanzapine (Olanzapine 5 Mg Tablet) 5 mg PO BEDTIME PRN PRN Reason: insomnia/anxiety Last Admin: 04/30/24 20:22 Dose: 5 mg Propranolol HCl (Propranolol Hcl 20 Mg Tablet) 20 mg PO BID [facility]; Protocol Last Admin: 05/01/24 08:32 Dose: 20 mg Quetiapine Fumarate (Quetiapine Fumarate 200 Mg Tablet) 200 mg PO BEDTIME [facility] Last Admin: 04/30/24 20:48 Dose: 200 mg Risperidone (Risperidone 2 Mg Tablet) 4 mg PO BEDTIME [facility] Last Admin: 04/30/24 20:20 Dose: 4 mg Trazodone HCl (Trazodone Hcl 50 Mg Tablet) 50 mg PO BEDTIME MRX1 PRN PRN Reason: Insomnia Last Admin: 04/26/24 21:51 Dose: 50 mg Allergies Allergies Allergy/AdvReac Type Severity Reaction Status Date / Time No Known Allergies Allergy Verified 04/23/24 17:08 Assessment & Plan Assessment & Plan (1) Bipolar 2 disorder: Status: Acute Code(s): F31.81 - Bipolar II disorder (2) PTSD (post-traumatic stress disorder): Status: Acute Code(s): F43.10 - Post-traumatic stress disorder, unspecified Plan The patient is an adult male with a history of mood disorder, psychosis and PTSD who was readmitted for exacerbation of psychotic symptoms without a clear stressor. He was assessed by crisis and transferred here for continuation of care. Plan 1. Gather collateral information. 2. 15 minute checks. 3. Continue with antipsychotics and mood stabilizers as before. 4. Continue with medical workout. 04/25: Active on unit, social with peers. attending groups. Pt reports feeling anxious today; pt stated, I notice that when I'm stressed the voices start. I went to my dad's house and was hearing them again . Pt reports he has been unable to sleep; reports thorazine not being helpful. discussed medications; Increased Risperidal to 3mg PO bedtime Increase hydroxyzine to 50mg PO BID Increase Seroquel to 150mg PO bedtime. Start: gabapentin 100mg PO BID DC thorazine 04/26: Pt continues to report feeling anxious today; pt stated, I'm worried about where I'm going to go after here. My family and I spoke about going to [facility] but I'm not sure how I'd pay for it . Continues to reports poor sleep; per nursing, slept 6 hours last night. He reports increase in auditory hallucinations d/t increase anxiety. denies SI/HI/VH. Increased Risperidal to 4mg PO bedtime Increase Seroquel to 200mg PO bedtime. DC Risperidal 1mg PO daily Start: Cogentin 1mg PO daily PRN 04/27: Pt continues to report feeling anxious today; pt reports he discussed with geriatric social work professor that his insurance does not allow him to go to respite. He plans on thinking of attending [facility] after discharge. Patient reports he is no longer having auditory hallucinations. He reports poor sleep last night d/t his room mate. denies SI/HI/VH/AH. 04/28: Pt continues to report feeling anxious today; pt reports he plans on discharging Thursday and staying at a hotel room my dad is getting for me . Pt reports he does not plan on returning to his father's house or work since those are the places my voices get worse . denies SI/HI/VH/AH. He reports sleeping well last night. 04/29: Active on unit, social with peers. Reports feeling overall not bad ; states he slept well last night. denies SI/HI/VH/AH. denies any issues at this time. plan for discharge on Thursday if continues to improve. continue current tx plan. 04/30 continue current management and treatment plan. 05/01: continue current management and treatment plan. Reason for continued inpatient stay Substantial Risk for: inability to function and rapid decompensation Time Spent With Patient Time: Total time managing care of this patient today ____ minutes.
[2024-05-01] MEDS: Nicotine Polacrilex Lozenge 4 MG LOZENGE BUCCAL ×3 (15:11→21:44)
[2024-05-01 20:00] VITALS: BP 122/72; PULSE 83; RESP 16; TEMP 37.2; O2SAT 100
[2024-05-01] MEDS: risperiDONE 2 MG TABLET 4 MG PO (20:35)
[2024-05-01] MEDS: OLANZapine 10 MG TABLET PO (20:35)
[2024-05-01] MEDS: LORazepam 1 MG TABLET PO (21:44)
[2024-05-01] MEDS: QUEtiapine Fumarate 200 MG TABLET PO (21:44)
[2024-05-02 07:40] VITALS: BP 107/61; PULSE 87; RESP 16; TEMP 36.8; O2SAT 98
[2024-05-02] MEDS: clonazePAM 1 MG TABLET PO (07:46)
[2024-05-02] MEDS: Nicotine Polacrilex Lozenge 4 MG LOZENGE BUCCAL ×3 (07:46→13:34)
[2024-05-02] MEDS: Gabapentin 100 MG CAPSULE PO (08:31)
[2024-05-02] MEDS: lamoTRIgine 100 MG TABLET 200 MG PO ×2 (08:31→13:33)
[2024-05-02] MEDS: Propranolol HCL 20 MG TABLET PO (08:32)
[2024-05-02] MEDS: Acetaminophen 325 MG TABLET 650 MG PO (08:50)
[2024-05-02] MEDS: Nicotine 21 MG PATCH.TD24 TRANSDERMA (09:41)
[2024-05-02] MEDS: MINOXIDIL 5% 1 EACH TOPICAL (09:42)
--- NOTE | 2024-05-02 10:19 | PM.PSYDC ---
DS: Providers Provider Date of Service: 05/02/24 Date of admission: 04/23/24 20:50 Date of discharge: 05/02/24 Primary care physician: Analy Physician Attending physician on admission: César Sawyer Attending physician on discharge: Elton Paiz Discharging clinician: Tawana Wilson DS: Diagnosis Discharge Diagnosis (1) Bipolar 2 disorder: Status: Acute (2) PTSD (post-traumatic stress disorder): Status: Acute DS: Medications Discharge Medications Home Medications: Previous Rx's ?Medication ?Instructions ?Recorded clonazepam 1 mg tablet 1 mg PO BID PRN Anxiety 14 days 04/20/24 #28 tabs hydroxyzine HCl 25 mg tablet 25 mg PO BID PRN Anxiety 30 days 04/20/24 #60 tabs lamotrigine 200 mg tablet 200 mg PO BID 30 days #60 tabs 04/20/24 propranolol 20 mg tablet 20 mg PO BID 30 days #60 tabs 04/20/24 quetiapine 100 mg tablet 100 mg PO BEDTIME 30 days #30 tabs 04/20/24 risperidone 1 mg tablet 1 mg PO DAILY 30 days #30 tabs 04/20/24 risperidone 2 mg tablet 2 mg PO BEDTIME 30 days #30 tabs 04/20/24 Mental Status Exam Mental Status Exam Narrative: Pt is alert and oriented; behavior is cooperative and calm; dressed in casual attire; mood is described as good ; eye contact appropriate; Speech is normal rate, volume and not pressured; thought process is organized and goal directed; Thought content is on discharge; denies SI/HI/VH/AH. DS: Summary Hospital Course Hospital Course: The patient is a 38-year-old male with a past history of psychosis who was recently discharged a few days ago from this facility. He reported that after being discharged, he went to his parent's house and he started hearing voices that threaten him. His father brought him to the emergency room due to psychotic symptoms, assessed by crisis and transferring to this facility for psychiatric stabilization. On the intake interview the patient reported that he was fully compliant with treatment but while he was at home he felt overwhelmed and stressed, he admitted that he was having auditory hallucinations insight his father's house. He also reported increased anxiety, fear and paranoia, he adamantly denies use of any substances and he stated there were no changes in his treatment plan. He stated that he feels safe in the unit. We will gather more collateral information continue with a ruler workout. He agreed to continue on the current treatment. He understood [place] warning. The patient is an adult male with a history of mood disorder, psychosis and PTSD who was readmitted for exacerbation of psychotic symptoms without a clear stressor. He was assessed by crisis and transferred here for continuation of care. Plan 1. Gather collateral information. 2. 15 minute checks. 3. Continue with antipsychotics and mood stabilizers as before. 4. Continue with medical workout. Active on unit, social with peers. attending groups. Pt reports feeling anxious today; pt stated, I notice that when I'm stressed the voices start. I went to my dad's house and was hearing them again . Pt reports he has been unable to sleep; reports thorazine not being helpful. discussed medications; Increased Risperidal to 3mg PO bedtime Increase hydroxyzine to 50mg PO BID Increase Seroquel to 150mg PO bedtime. Start: gabapentin 100mg PO BID DC thorazine Pt continues to report feeling anxious today; pt stated, I'm worried about where I'm going to go after here. My family and I spoke about going to [employer] but I'm not sure how I'd pay for it . Continues to reports poor sleep; per nursing, slept 6 hours last night. He reports increase in auditory hallucinations d/t increase anxiety. denies SI/HI/VH. Increased Risperidal to 4mg PO bedtime Increase Seroquel to 200mg PO bedtime. DC Risperidal 1mg PO daily Start: Cogentin 1mg PO daily PRN Pt continues to report feeling anxious today; pt reports he discussed with psychosocial rehabilitation counselor that his insurance does not allow him to go to respite. He plans on thinking of attending [facility] after discharge. Patient reports he is no longer having auditory hallucinations. He reports poor sleep last night d/t his room mate. denies SI/HI/VH/AH. Pt continues to report feeling anxious today; pt reports he plans on discharging Thursday and staying at a hotel room my dad is getting for me . Pt reports he does not plan on returning to his father's house or work since those are the places my voices get worse . denies SI/HI/VH/AH. He reports sleeping well last night. Active on unit, social with peers. Reports feeling overall not bad ; states he slept well last night. denies SI/HI/VH/AH. denies any issues at this time. plan for discharge on Thursday if continues to improve. continue current tx plan. Patient reports feeling good today; looking forward to discharge. Pt plans on following up with his outpatient providers. denies SI/HI/VH/AH. Status at Discharge Cognitive/behavioral status at discharge: Patient has insight and demonstrates good judgment in terms of wanting to pursue treatment. Patient has a safety plan that includes presenting to the closest ER or calling 911 if feeling unsafe. Functional status at discharge: independent ambulation Overall status at discharge: patient is back to baseline Time Spent with Patient Time attestation: Total time managing care of this patient today __20__ minutes. Time spent: Less than 30 minutes Discharge Plan Discharge Anticipated Discharge Date/Time: 05/02/24 14:00 Patient Disposition: Home, Self-Care Discharge Diagnosis: Bipolar d/o, PTSD Referrals: Physician,None [Primary Care Provider] - 1 Week Discharge Medications: New risperidone 4 mg tablet 4 mg PO BEDTIME 30 Days Qty: 30 0RF quetiapine 200 mg Tablet 200 mg PO BEDTIME 30 Days Qty: 30 0RF gabapentin 100 mg Capsule 100 mg PO BID 30 Days Qty: 60 0RF benztropine 1 mg Tablet 1 mg PO DAILY PRN (Reason: Extrapyramidal Effects) 30 Days Qty: 30 0RF trazodone 50 mg Tablet 50 mg PO BEDTIME PRN (Reason: Insomnia) 30 Days Qty: 30 0RF olanzapine 10 mg Tablet 10 mg PO BEDTIME PRN (Reason: insomnia/anxiety) 30 Days Qty: 30 0RF Continued lamotrigine 200 mg tablet 200 mg PO BID 30 Days Qty: 60 0RF Rx Instructions: patient states he takes at 7am and 2pm propranolol 20 mg Tablet 20 mg PO BID 30 Days Qty: 60 0RF Protocol: Hold for SBP/HR < HOLD for SBP < : 90 HOLD for HR < : 60 hydroxyzine HCl 25 mg Tablet 25 mg PO BID PRN (Reason: Anxiety) 30 Days Qty: 60 0RF clonazepam 1 mg Tablet 1 mg PO BID PRN (Reason: Anxiety) 14 Days Qty: 28 0RF Discontinued risperidone 1 mg Tablet 1 mg PO DAILY 30 Days Qty: 30 0RF risperidone 2 mg Tablet 2 mg PO BEDTIME 30 Days Qty: 30 0RF quetiapine 100 mg tablet 100 mg PO BEDTIME 30 Days Qty: 30 0RF Discharge Orders: Discharge Order (Routine); Ordered 05/02/24 Ordered By: Tawana Wilson Diet: Regular diet Activity on Discharge: As tolerated Stand Alone Forms: Patient Portal Discharge page, Community Support Print Language: Azeri Care Plan Goals: Maintain mood and safe behaviors Take medications as prescribed Practice coping skills Continue with outpatient providers and reach out to them as needed Health Concerns: Mood stability and behaviors Plan of Treatment: Follow up with your PCP, psychiatric provider and other outpatient providers regarding above concerns Take medications as prescribed Assessment: Patient has insight and demonstrates good judgment in terms of wanting to pursue treatment. Patient has a safety plan that includes presenting to the closest ER or calling 911 if feeling unsafe.
[2024-05-02] MEDS: hydrOXYzine HCL 50 MG TABLET PO (11:37)
== END 2024-05-02 14:42 | disposition home or self-care (01) | DRG 753 ==
LOC: HO.ED 17:53 → HO.PADLT16 20:59 → HO.PM5 04-25 15:25 → HO.PADLT16 04-25 15:30
PROVIDERS: Physician Assistant Medical; Admitting Provider Psychiatry & Neurology Psychiatry; Emergency Provider Emergency Medicine; Responsible Provider Registered Nurse; Visit Provider Psychiatry & Neurology Psychiatry
DX: F31.81 Bipolar II disorder (principal); F43.10 Post-traumatic stress disorder, unspecified; Z79.899 Other long term (current) drug therapy
CPT/HCPCS: 36415; 80048; 80053; 80061; 80076; 80307; 85025; 99285; S9485

== ENCOUNTER → 2024-04-23 20:50 | Outpatient (BNV) | payer BC, SELFPAY | PROVIDERS: Admitting Provider Psychiatry & Neurology Psychiatry; Emergency Provider Emergency Medicine; Visit Provider Psychiatry & Neurology Psychiatry | DX: F31.81 Bipolar II disorder (principal); F43.10 Post-traumatic stress disorder, unspecified | CPT/HCPCS: 90792; 99232; 99238 ==